=== PATIENT | female | born 1995 | race Caucasian/White ===

== ENCOUNTER 2017-02-07 13:54 | Inpatient (IN) | payer OTHER ==
[~2017-02-07] VITALS: Ht 170.2 cm; Wt 93.4 kg
[2017-02-07] MEDS ORDERED: IV NORMAL SALINE 1000ML BAG 1,000 ML IV SCH ×2 (15:10→17:30)
[2017-02-07] MEDS ORDERED: ONDANSETRON PF 4 MG/2 ML VIAL. IV ONE (15:15)
[2017-02-07] MEDS ORDERED: IOHEXOL 300 MG/ML 75 ML VIAL IV ONE (15:30)
[2017-02-07] MEDS ORDERED: CONTRAST GIVEN MC PRN (15:30)
[2017-02-07] MEDS: MORPHINE SULFATE 4 MG/ML DISP.SYRIN. IV/SQ PRN ×2 (15:35→17:40)
[2017-02-07 15:36] LABS: BASO # 0.1 x10^3/uL (0.0-0.2); BASO % 0 % (0-3); EOS % 1 % (0-3); HEMOGLOBIN 14.5 g/dL (12.0-15.5); LYMPH # 2.3 x10^3/uL (1.0-4.8); LYMPH % 11 % (24-48); MEAN CORPUSCULAR HEMOGLOBIN 31 pg (25-35); MEAN CORPUSCULAR HGB CONC 34 g/dL (31-37); MEAN CORPUSCULAR VOLUME 93 fL (79-100); MONO % 4 % (0-9); NEUT % 84 % (31-73); PLATELET COUNT 333 x10^3/uL (140-400); RED BLOOD COUNT 4.63 x10^6/uL (3.50-5.40); RED CELL DISTRIBUTION WIDTH 12.3 % (11.5-14.5); WHITE BLOOD COUNT 22.2 x10^3/uL (4.0-11.0)
[2017-02-07 15:48] LABS: CALCIUM 9.1 mg/dL (8.5-10.1); CREATININE 0.7 mg/dL (0.6-1.0); GFR 104.6; POTASSIUM 3.6 mmol/L (3.5-5.1)
[2017-02-07 15:53] LABS: ALBUMIN 3.8 g/dL (3.4-5.0); TOTAL BILIRUBIN 0.5 mg/dL (0.2-1.0); TOTAL PROTEIN 7.6 g/dL (6.4-8.2)
[2017-02-07 15:53] LABS: BILIRUBIN,URINE NEGATIVE (NEG); GLUCOSE,URINE NEGATIVE (NEG); NITRITE,URINE NEGATIVE (NEG); PROTEIN,URINE NEGATIVE (NEG-TRACE); UROBILINOGEN,URINE 0.2 mg/dL (0.2 mg/dL)
[2017-02-07 16:25] LABS: BACTERIA,URINE 0 /HPF (0-FEW); RBC,URINE >40 /HPF (0-2); SQUAMOUS EPITHELIAL CELL,UR FEW /LPF; WBC,URINE 0 /HPF (0-4)
--- NOTE | 2017-02-07 16:27 | PHYS DOC ---
Past Medical History Past Medical History: Diabetes-Type I Past Surgical History: Other Additional Past Surgical Histo: ear tubes Smoking: Less than 1pk/day Alcohol Use: Occasionally Drug Use: Cocaine, Marijuana, Methamphetamine Social History Narrative: "I haven't done hard drugs in a couple months. Did marijuana two weeks ago" Adult General Chief Complaint Chief Complaint: ABDOMINAL PAIN HPI HPI Patient is a 21 year old type I diabetic female who presents with right lower quadrant pain starting last night. She's had nausea without vomiting. She reports subjective fever. She denies any diarrhea. She states that she feels like she needs to have a bowel movement but has not had any bowel movement for 2 days. She typically has a daily bowel movement. She denies any urinary symptoms or vaginal discharge. LMP . She last took ibuprofen at 1200. She sees a PCP at [facility]. Review of Systems Review of Systems Constitutional: Reports subjective fever. Eyes: Denies change in visual acuity, redness, or eye pain. [] HENT: Denies ear pain, nasal congestion or sore throat. [] Respiratory: Denies cough or shortness of breath. [] Cardiovascular: Denies chest pain, palpitations or edema. [] GI: Denies vomiting, bloody stools or diarrhea. Reports right lower quadrant abdominal pain and nausea. : Denies dysuria, hematuria or urinary frequency. Denies vaginal discharge. Musculoskeletal: Denies back pain or joint pain. [] Integument: Denies rash or skin lesions. [] Neurologic: Denies headache, focal weakness or sensory changes. [] Endocrine: Denies polyuria or polydipsia. [] Psych: Denies anxiety or depression. [] All systems reviewed and negative unless otherwise stated in the HPI. Current Medications Current Medications Current Medications Medications (Trade) Dose Ordered Sig/Fracisco Start Time Stop Time Status Last Admin Dose Admin Info (Do NOT chart on this entry -- for MONITORING) 1 each PRN DAILY PRN 02/07/17 15:30 02/09/17 15:29 Iohexol (Omnipaque 300 Mg/ml) 75 ml 1X ONCE 02/07/17 15:30 02/07/17 15:31 DC 02/07/17 16:14 75 ML Morphine Sulfate 4 mg 4 mg PRN Q2HR PRN 02/07/17 17:00 02/08/17 16:59 UNV Ondansetron HCl (Zofran) 4 mg PRN Q8HRS PRN 02/07/17 17:00 02/08/17 16:59 UNV Piperacillin Sod/ Tazobactam Sod (Zosyn Per Pharmacy) 1 each PRN DAILY PRN 02/07/17 17:00 UNV Sodium Chloride (Iv Sodium Chloride 0.9% 1000ml Bag) 1,000 ml @ 125 mls/hr Q8H 02/07/17 16:54 02/08/17 16:53 UNV Allergies Allergies Allergies Coded Allergies Type Severity Reaction Last Updated Verified No Known Drug Allergies 02/07/17 No Physical Exam Physical Exam Constitutional: Well developed, well nourished, no acute distress, non-toxic appearance. [] HENT: Normocephalic, atraumatic, oropharynx moist. [] Eyes: PERRLA, EOMI, conjunctiva normal, no discharge. [] Neck: Normal range of motion, no tenderness, supple, no stridor. [] Cardiovascular: Heart rate regular rhythm, no murmur. [] Lungs & Thorax: Bilateral breath sounds clear to auscultation without wheezes, rales, or rhonchi. [] Abdomen: Bowel sounds normal, soft, right lower quadrant tenderness, no masses, no pulsatile masses. The patient's abdomen is soft and nonsurgical with RLQ tenderness. The tenderness is mostly below the pelvic brim without tenderness at McBurney's point. There is no guarding or rebound tenderness. Skin: Warm, dry, no erythema, no rash. [] Back: No midline tenderness, no CVA tenderness. [] Extremities: No tenderness, ROM intact, no edema. Distal pulses equal bilaterally. [] Neurologic: Alert and oriented X 3, normal motor function, normal sensory function, no focal deficits noted. [] Psychologic: Affect normal, judgement normal, mood normal. [] Current Patient Data Vital Signs Vital Signs Date Time Temp Pulse Resp B/P Pulse Ox O2 Delivery O2 Flow Rate FiO2 02/07/17 15:35 18 98 Room Air 02/07/17 14:10 98.6 79 115/58 98.6 Lab Values Laboratory Tests Test 02/07/17 13:52 02/07/17 14:49 02/07/17 15:15 POC Urine HCG, Qualitative Hcg negative (Negative) Urine Collection Type Unknown Urine Color Yellow Urine Clarity Clear Urine pH 8.0 Urine Specific [place] 1.020 Urine Protein Negativemg/dL (NEG-TRACE) Urine Glucose (UA) Negativemg/dL (NEG) Urine Ketones (Stick) Tracemg/dL (NEG) Urine Blood Large (NEG) Urine Nitrite Negative (NEG) Urine Bilirubin Negative (NEG) Urine Urobilinogen Dipstick 0.2mg/dL (0.2 mg/dL) Urine Leukocyte Esterase Negative (NEG) Urine RBC >40/HPF (0-2) Urine WBC 0/HPF (0-4) Urine Squamous Epithelial Cells Few/LPF Urine Bacteria 0/HPF (0-FEW) Urine Mucus Marked/LPF White Blood Count 22.2x10^3/uL (4.0-11.0) H Red Blood Count 4.63x10^6/uL (3.50-5.40) Hemoglobin 14.5g/dL (12.0-15.5) Hematocrit 43.0% (36.0-47.0) Mean Corpuscular Volume 93fL (79-100) Mean Corpuscular Hemoglobin 31pg (25-35) Mean Corpuscular Hemoglobin Concent 34g/dL (31-37) Red Cell Distribution Width 12.3% (11.5-14.5) Platelet Count 333x10^3/uL (140-400) Neutrophils (%) (Auto) 84% (31-73) H Lymphocytes (%) (Auto) 11% (24-48) L Monocytes (%) (Auto) 4% (0-9) Eosinophils (%) (Auto) 1% (0-3) Basophils (%) (Auto) 0% (0-3) Neutrophils # (Auto) 18.7x10^3uL (1.8-7.7) H Lymphocytes # (Auto) 2.3x10^3/uL (1.0-4.8) Monocytes # (Auto) 1.0x10^3/uL (0.0-1.1) Eosinophils # (Auto) 0.1x10^3/uL (0.0-0.7) Basophils # (Auto) 0.1x10^3/uL (0.0-0.2) Segmented Neutrophils % 78% (35-66) H Band Neutrophils % 7% (0-9) Lymphocytes % 10% (24-48) L Atypical Lymphocytes % (Manual) 1% (0-0) H Monocytes % 2% (0-10) Eosinophils % 2% (0-5) Platelet Estimate Adequate (ADEQUATE) Sodium Level 140mmol/L (136-145) Potassium Level 3.6mmol/L (3.5-5.1) Chloride Level 105mmol/L (98-107) Carbon Dioxide Level 26mmol/L (21-32) Anion Gap 9 (6-14) Blood Urea Nitrogen 12mg/dL (7-20) Creatinine 0.7mg/dL (0.6-1.0) Estimated GFR (Cockcroft-Gault) 104.6 BUN/Creatinine Ratio 17 (6-20) Glucose Level 103mg/dL (70-99) H Calcium Level 9.1mg/dL (8.5-10.1) Total Bilirubin 0.5mg/dL (0.2-1.0) Aspartate Amino Transferase (AST) 14U/L (15-37) L Alanine Aminotransferase (ALT) 22U/L (14-59) Alkaline Phosphatase 111U/L (46-116) Total Protein 7.6g/dL (6.4-8.2) Albumin 3.8g/dL (3.4-5.0) Albumin/Globulin Ratio 1.0 (1.0-1.7) Lipase 62U/L (73-393) L Laboratory Tests 02/07/17 15:15 Laboratory Tests 02/07/17 15:15 EKG EKG [] Radiology/Procedures Radiology/Procedures REASON: rlq pain PROCEDURE: ABD PELV W/ IV CONTRAST ONLY CT of the abdomen and pelvis with contrast, 02/07/2017: History: Right lower quadrant pain Multidetector CT imaging was performed following an IV bolus injection of iodinated contrast material. No oral contrast material was administered for this study. The liver, gallbladder, pancreas, spleen and both kidneys are unremarkable. The cecum is low-lying in the right lower quadrant. There is a tubular structure extending superiorly from the cecum most compatible with a dilated appendix. It contains small radiopacities compatible with appendicoliths. Its saavedra are thickened. It measures approximately 13 mm in diameter. There is moderate streaky increased density in the periappendiceal fat. There is a small amount of free fluid in the deep pelvis. This inflammatory process lies adjacent to the right ovary. The right ovary contains a 3.1 cm cyst. The bowel loops are not dilated. No free air is evident in the abdomen or pelvis. IMPRESSION: 1. Acute appendicitis with moderate periappendiceal inflammation and a small amount of free fluid in the deep pelvis suggesting associated perforation. 2. Small right ovarian cyst. Course & Med Decision Making Course & Med Decision Making Pertinent Labs and Imaging studies reviewed. (See chart for details) The patient is a 21-year-old type I diabetic female who presents with right lower quadrant pain starting last night. Upon arrival to the emergency department, she is afebrile and her vital signs are stable. On exam, her abdomen is soft with right lower quadrant tenderness. There is no rigidity, rebound, or guarding. Laboratory evaluation is significant for leukocytosis with WBC 22,000. CT of the abdomen and pelvis is positive for appendicitis with small amount of free pelvic fluid suggesting possible perforation. I reexamined the patient at 1645. Her abdomen remains soft with right lower quadrant tenderness. There is still no rigidity, rebound, or guarding. I discussed the results with the patient and the need for hospital admission for surgery for acute appendicitis. She is in agreement with this plan. Dr. Girard, general surgeon, was consultation. He requests to have the patient admitted under the hospitalist service due to her diabetes. IV Zosyn was initiated in the emergency department under his request. Dr. Lao with the hospitalist group accepted admission. The patient remained stable while in the emergency department. Dragon Disclaimer Dragon Disclaimer This electronic medical record was generated, in whole or in part, using a voice recognition dictation system. Departure Departure Impression: Primary Impression: Appendicitis with perforation Disposition: ADMITTED INPATIENT Admitting Physician: Other (Dr. Lao) Condition: STABLE Referrals: NO PCP (PCP) HOLLEY CORRALES Feb 07, 2017 16:27
--- NOTE | 2017-02-07 16:35 | RAD ---
CT of the abdomen and pelvis with contrast, 02/07/2017: History: Right lower quadrant pain Multidetector CT imaging was performed following an IV bolus injection of iodinated contrast material. No oral contrast material was administered for this study. The liver, gallbladder, pancreas, spleen and both kidneys are unremarkable. The cecum is low-lying in the right lower quadrant. There is a tubular structure extending superiorly from the cecum most compatible with a dilated appendix. It contains small radiopacities compatible with appendicoliths. Its saavedra are thickened. It measures approximately 13 mm in diameter. There is moderate streaky increased density in the periappendiceal fat. There is a small amount of free fluid in the deep pelvis. This inflammatory process lies adjacent to the right ovary. The right ovary contains a 3.1 cm cyst. The bowel loops are not dilated. No free air is evident in the abdomen or pelvis. IMPRESSION: 1. Acute appendicitis with moderate periappendiceal inflammation and a small amount of free fluid in the deep pelvis suggesting associated perforation. 2. Small right ovarian cyst. PQRS Compliance Statement: One or more of the following individualized dose reduction techniques were utilized for this examination: 1. Automated exposure control 2. Adjustment of the mA and/or kV according to patient size 3. Use of iterative reconstruction technique
[2017-02-07 16:54] LABS: % EOS 2 % (0-5); PLT ESTIMATE ADEQUATE (ADEQUATE)
[2017-02-07] MEDS ORDERED: MORPHINE SULFATE 4 MG/ML DISP.SYRIN. IV PRN (17:00)
[2017-02-07] MEDS ORDERED: PIP/TAZO PER PHARMACY MC PRN (17:00)
[2017-02-07] MEDS ORDERED: ONDANSETRON PF 4 MG/2 ML VIAL. IV PRN ×2 (17:00→19:00)
[2017-02-07] MEDS ORDERED: PIPERACILLIN/TAZOBACTAM 3.375 GM in IV NORMAL SALINE 50ML 50 ML IV ONE (17:15)
--- NOTE | 2017-02-07 17:47 | ACF ---
Admission Forms Criteria ABDOMINAL PAIN Clinical Indications for Admission to Inpatient Care (Place 'X' for any and all applicable criteria): Admission is indicated for ANY ONE of the following(1)(2)(3)(4)(5): [X]I. Inpatient admission required rather than observation care (Also use Abdominal Pain: Observation Care, as appropriate) because of ANY ONE of the following: [X]a) Severe pain requiring acute inpatient management [X]b) Identification of etiology/finding that requires inpatient care (eg, aortic dissection, free air) [ ]c) Absent bowel sounds with complete ileus(6) [ ]d) Suspected toxic megacolon [ ]e) Severe electrolyte abnormalities requiring inpatient care [ ]f) High fever or infection requiring inpatient admission as indicated by ANY ONE of following(7)(8): [ ] i) Appropriate outpatient or observational care antimicrobial treatment unavailable, not effective, or not feasible [ ] ii) Documented bacteremia [ ] iii) Temperature > 104.9 degrees F (oral) [ ] iv) T >103.1 F (oral) or < 96.8 F(rectal) that does not respond to all emergency treatment measures [ ]g) Signs of intestinal obstruction [B] [ ]h) Hemodynamic instability [ ]i) IV fluid to replace significant ongoing losses (greater than 3 L/m2 per day) (12)(13) [ ]j) Percutaneous or open drainage (eg, abscess, biliary tract ) procedures [ ]k) Parenteral nutrition regimen that must be implemented on inpatient basis [ ]l) Other condition,treatment or monitoring requiring inpatient admission. [ ]II. Peritoneal signs present [ ]III. Surgery needed that cannot be performed on an ambulatory basis. [ ]IV. Evaluation requires patient to not eat or drink for extended period ( eg, more than 24 hours). [ ]V. Contraindications and/or Inappropriate clinical situations for Observational Care in patients with abdominal pain, when ANY ONE of the following is required: [ ]a) Thorough evaluation is required to prevent catastrophic events due to delays in diagnosing (e.g.Mesenteric ischemia) 1,3 [ ]b) Patient with severe pathology or with chronic symptoms unlikely to improve in the ED stay (3) [ ]. General contraindications and/or Inappropriate clinical situations for Observational Care in patients with abdominal pain, when ANY ONE of the following is required: [ ]a) Prediction of prolongation of LOS based on ANY ONE of the following may be considered as a contraindication for observational care 2, 3, 4, 5, 6, 7, 8, 9, 10, 11 [ ]i) Age > 65 yrs. [ ]ii) Patient arriving by ambulance [ ]iii) Patient with high acuity [ ]iv) Patient requiring vital sign monitoring [ ]v) Patient on IV medication [ ]b) Systolic blood pressures 180mmHg 3,12 [ ]c) Patient with altered mental status including delirium and other alteration of consciousness, (3) [ ]d) Patient whose discharge disposition will be to a shelter home or rehabilitation home should not be managed in Emergency Department Observation Unit. CMS rule requires 3 days hospital stay before such placement.3,13 [ ]e) Patient with failure to thrive due to broad array of etiologies 3,16,17 [ ]f) Inability to ambulate 3,14 Extended stay beyond goal length of stay may be needed for(2)(3): [ ]a) Persistent abdominal pain with suspected intra-abdominal process [ ]b) Diagnosed condition requiring continued stay (e.g., pancreatitis, complicated diverticulitis) [ ]c) Surgery (e.g., colectomy) The original [facility] content created by [employer] has been revised. The portions of the content which have been revised are identified through the use of italic text or in bold, and [facility] has neither reviewed nor approved the modified material.All other unmodified content is copyright [employer]. Please see references footnoted in the original [facility] edition 2016 Admission Criteria Met?: Yes MIKA OJEDA Feb 07, 2017 17:46
--- NOTE | 2017-02-07 17:52 | PDOC2 ---
CONSULT Date of Consult Date of Consult DATE: 02/07/17 TIME: 17:43 Reason for Consult Reason for Consult: acute appendicitis Referring Physician Referring Physician: CALI Identification/Chief Complaint Chief Complaint RLQ pain Source Source: Patient History of Present Illness Reason for Visit: Nena is a 21 yo female who had acute onset of some right sided pain yesterday. She was just coming off her period and thought it might be cramps, however, the pain got worse and she came to the ED. CT here shows an acute appendicitis. Past Medical History Cardiovascular: No pertinent hx Pulmonary: No pertinent hx GI: No pertinent hx Hepatobiliary: No pertinent hx Renal/: No pertinent hx Endocrine: Diabetes, Other (since age [age]) Past Surgical History Past Surgical History: No pertinent history Family History Family History: No Significant Social History <1 pack per day ALCOHOL: occassional Current Problem List Problem List Problems Medical Problems: (1) Appendicitis with perforation Status: Acute Current Medications Current Medications Current Medications Morphine Sulfate 4 mg 4 mg PRN Q15MIN PRN IV/SQ PAIN GREATER THAN 3/10 Last administered on 02/07/17 15:35; Start 02/07/17 at 15:15; Stop 02/08/17 at 15:14 Sodium Chloride (Iv Sodium Chloride 0.9% 1000ml Bag) 1,000 ml @ 1,000 mls/hr Q1H IV Last administered on 02/07/17 15:31; Start 02/07/17 at 15:10; Stop at 16:09; Status DC Ondansetron HCl (Zofran) 4 mg 1X ONCE IV Last administered on 02/07/17 15:33 ; Start 02/07/17 at 15:15; Stop 02/07/17 at 15:16; Status DC Iohexol (Omnipaque 300 Mg/ml) 75 ml 1X ONCE IV Last administered on 02/07/17 16:14; Start 02/07/17 at 15:30; Stop 02/07/17 at 15:31; Status DC Info (Do NOT chart on this entry -- for MONITORING) 1 each PRN DAILY PRN MC SEE COMMENTS; Start 02/07/17 at 15:30; Stop 02/09/17 at 15:29 Ondansetron HCl (Zofran) 4 mg PRN Q8HRS PRN IV NAUSEA/VOMITING; Start 02/07/17 at 17:00; Stop 02/08/17 at 16:59 Morphine Sulfate 4 mg 4 mg PRN Q2HR PRN IV PAIN; Start 02/07/17 at 17:00; Stop 02/08/17 at 16:59 Sodium Chloride (Iv Sodium Chloride 0.9% 1000ml Bag) 1,000 ml @ 125 mls/hr Q8H IV ; Start 02/07/17 at 17:30; Stop 02/08/17 at 17:29 Piperacillin Sod/ Tazobactam Sod 1 each 1 each PRN DAILY PRN MC SEE COMMENTS; Start 02/07/17 at 17:00; Status UNV Piperacillin Sod/ Tazobactam Sod/ Sodium Chloride (Zosyn/Iv Sodium Chloride 0.9 % 50ml) 50 ml @ 100 mls/hr 1X ONCE IV ; Start 02/07/17 at 17:15; Stop at 17:44 Allergies Allergies: Coded Allergies: No Known Drug Allergies (Unverified , 02/07/17) ROS General: YES: Fatigue Gastrointestinal: Yes Abdominal Pain Physical Exam General: Alert, Oriented X3, Cooperative, No acute distress HEENT: Atraumatic Lungs: Normal air movement Heart: Regular rate Abdomen: Other (TTP RLQ) Vitals VITALS Vital Signs Date Time Temp Pulse Resp B/P Pulse Ox O2 Delivery O2 Flow Rate FiO2 02/07/17 15:35 18 98 Room Air 02/07/17 14:10 98.6 79 115/58 98.6 Labs Labs Laboratory Tests Test 02/07/17 13:52 02/07/17 14:49 02/07/17 15:15 Bedside Urine HCG, Qualitative Hcg negative (Negative) Urine Collection Type Unknown Urine Color Yellow Urine Clarity Clear Urine pH 8.0 Urine Specific [place] 1.020 Urine Protein Negativemg/dL (NEG-TRACE) Urine Glucose (UA) Negativemg/dL (NEG) Urine Ketones (Stick) Tracemg/dL (NEG) Urine Blood Large (NEG) Urine Nitrite Negative (NEG) Urine Bilirubin Negative (NEG) Urine Urobilinogen Dipstick 0.2mg/dL (0.2 mg/dL) Urine Leukocyte Esterase Negative (NEG) Urine RBC >40/HPF (0-2) Urine WBC 0/HPF (0-4) Urine Squamous Epithelial Cells Few/LPF Urine Bacteria 0/HPF (0-FEW) Urine Mucus Marked/LPF White Blood Count 22.2x10^3/uL (4.0-11.0) Red Blood Count 4.63x10^6/uL (3.50-5.40) Hemoglobin 14.5g/dL (12.0-15.5) Hematocrit 43.0% (36.0-47.0) Mean Corpuscular Volume 93fL (79-100) Mean Corpuscular Hemoglobin 31pg (25-35) Mean Corpuscular Hemoglobin Concent 34g/dL (31-37) Red Cell Distribution Width 12.3% (11.5-14.5) Platelet Count 333x10^3/uL (140-400) Neutrophils (%) (Auto) 84% (31-73) Lymphocytes (%) (Auto) 11% (24-48) Monocytes (%) (Auto) 4% (0-9) Eosinophils (%) (Auto) 1% (0-3) Basophils (%) (Auto) 0% (0-3) Neutrophils # (Auto) 18.7x10^3uL (1.8-7.7) Lymphocytes # (Auto) 2.3x10^3/uL (1.0-4.8) Monocytes # (Auto) 1.0x10^3/uL (0.0-1.1) Eosinophils # (Auto) 0.1x10^3/uL (0.0-0.7) Basophils # (Auto) 0.1x10^3/uL (0.0-0.2) Segmented Neutrophils % 78% (35-66) Band Neutrophils % 7% (0-9) Lymphocytes % 10% (24-48) Atypical Lymphocytes % (Manual) 1% (0-0) Monocytes % 2% (0-10) Eosinophils % 2% (0-5) Platelet Estimate Adequate (ADEQUATE) Sodium Level 140mmol/L (136-145) Potassium Level 3.6mmol/L (3.5-5.1) Chloride Level 105mmol/L (98-107) Carbon Dioxide Level 26mmol/L (21-32) Anion Gap 9 (6-14) Blood Urea Nitrogen 12mg/dL (7-20) Creatinine 0.7mg/dL (0.6-1.0) Estimated GFR (Cockcroft-Gault) 104.6 BUN/Creatinine Ratio 17 (6-20) Glucose Level 103mg/dL (70-99) Calcium Level 9.1mg/dL (8.5-10.1) Total Bilirubin 0.5mg/dL (0.2-1.0) Aspartate Amino Transf (AST/SGOT) 14U/L (15-37) Alanine Aminotransferase (ALT/SGPT) 22U/L (14-59) Alkaline Phosphatase 111U/L (46-116) Total Protein 7.6g/dL (6.4-8.2) Albumin 3.8g/dL (3.4-5.0) Albumin/Globulin Ratio 1.0 (1.0-1.7) Lipase 62U/L (73-393) Laboratory Tests Test 02/07/17 13:52 02/07/17 14:49 02/07/17 15:15 Bedside Urine HCG, Qualitative Hcg negative (Negative) Urine Collection Type Unknown Urine Color Yellow Urine Clarity Clear Urine pH 8.0 Urine Specific [place] 1.020 Urine Protein Negativemg/dL (NEG-TRACE) Urine Glucose (UA) Negativemg/dL (NEG) Urine Ketones (Stick) Tracemg/dL (NEG) Urine Blood Large (NEG) Urine Nitrite Negative (NEG) Urine Bilirubin Negative (NEG) Urine Urobilinogen Dipstick 0.2mg/dL (0.2 mg/dL) Urine Leukocyte Esterase Negative (NEG) Urine RBC >40/HPF (0-2) Urine WBC 0/HPF (0-4) Urine Squamous Epithelial Cells Few/LPF Urine Bacteria 0/HPF (0-FEW) Urine Mucus Marked/LPF White Blood Count 22.2x10^3/uL (4.0-11.0) Red Blood Count 4.63x10^6/uL (3.50-5.40) Hemoglobin 14.5g/dL (12.0-15.5) Hematocrit 43.0% (36.0-47.0) Mean Corpuscular Volume 93fL (79-100) Mean Corpuscular Hemoglobin 31pg (25-35) Mean Corpuscular Hemoglobin Concent 34g/dL (31-37) Red Cell Distribution Width 12.3% (11.5-14.5) Platelet Count 333x10^3/uL (140-400) Neutrophils (%) (Auto) 84% (31-73) Lymphocytes (%) (Auto) 11% (24-48) Monocytes (%) (Auto) 4% (0-9) Eosinophils (%) (Auto) 1% (0-3) Basophils (%) (Auto) 0% (0-3) Neutrophils # (Auto) 18.7x10^3uL (1.8-7.7) Lymphocytes # (Auto) 2.3x10^3/uL (1.0-4.8) Monocytes # (Auto) 1.0x10^3/uL (0.0-1.1) Eosinophils # (Auto) 0.1x10^3/uL (0.0-0.7) Basophils # (Auto) 0.1x10^3/uL (0.0-0.2) Segmented Neutrophils % 78% (35-66) Band Neutrophils % 7% (0-9) Lymphocytes % 10% (24-48) Atypical Lymphocytes % (Manual) 1% (0-0) Monocytes % 2% (0-10) Eosinophils % 2% (0-5) Platelet Estimate Adequate (ADEQUATE) Sodium Level 140mmol/L (136-145) Potassium Level 3.6mmol/L (3.5-5.1) Chloride Level 105mmol/L (98-107) Carbon Dioxide Level 26mmol/L (21-32) Anion Gap 9 (6-14) Blood Urea Nitrogen 12mg/dL (7-20) Creatinine 0.7mg/dL (0.6-1.0) Estimated GFR (Cockcroft-Gault) 104.6 BUN/Creatinine Ratio 17 (6-20) Glucose Level 103mg/dL (70-99) Calcium Level 9.1mg/dL (8.5-10.1) Total Bilirubin 0.5mg/dL (0.2-1.0) Aspartate Amino Transf (AST/SGOT) 14U/L (15-37) Alanine Aminotransferase (ALT/SGPT) 22U/L (14-59) Alkaline Phosphatase 111U/L (46-116) Total Protein 7.6g/dL (6.4-8.2) Albumin 3.8g/dL (3.4-5.0) Albumin/Globulin Ratio 1.0 (1.0-1.7) Lipase 62U/L (73-393) Images Images CT abdomen reviewed Assessment/Plan Assessment/Plan acute appendicitis with possible perforation IDDM for l/s appendectomy Explained risks including but not limited to bleeding, infection, injury to bowel, bladder or pelvic organs. Or possible need for an "open" procedure. She understands and will proceed Thanks for consult JADEN CHOWDHURY MD Feb 07, 2017 17:52
[2017-02-07] MEDS ORDERED: METRONIDAZOLE 500mg PREMIX 100 ML IV PRN (18:00)
[2017-02-07] MEDS ORDERED: DEXTROSE 50% 25 GM / 50ML DISP.SYRIN. IV PRN ×2 (18:30→21:45)
[2017-02-07] MEDS ORDERED: IV RINGERS,LACTATED 1000ML 1,000 ML IV SCH (18:55)
[2017-02-07] MEDS ORDERED: PROCHLORPERAZINE 10 MG/2 ML VIAL. IV PRN (19:00)
[2017-02-07] MEDS ORDERED: HYDROMORPHONE 2 MG/ML VIAL. IV PRN (19:00)
[2017-02-07] MEDS ORDERED: FENTANYL PF 100 MCG/2 ML VIAL. IV PRN (19:00)
[2017-02-07] MEDS ORDERED: LIDOCAINE 1% 1 ML SYRINGE. ID PRN (19:00)
[2017-02-07] MEDS ORDERED: MORPHINE SULFATE 2 MG/ML DISP.SYRIN. IV PRN (19:00)
[2017-02-07] MEDS ORDERED: FENTANYL PF 100 MCG/2 ML VIAL. ONE (19:15)
[2017-02-07] MEDS ORDERED: GLYCOPYRROLATE 1 MG/5 ML VIAL. ONE (19:15)
[2017-02-07] MEDS ORDERED: PROPOFOL 20 ML IV ONE (19:15)
[2017-02-07] MEDS ORDERED: LIDOCAINE 2% 100 MG/5 ML DISP.SYRIN. ONE (19:15)
[2017-02-07] MEDS ORDERED: NEOSTIGMINE METHYLSULFATE 5 MG/5 ML SYRINGE. ONE ×3 (19:15→19:23)
[2017-02-07] MEDS ORDERED: DEXAMETHASONE SOD PHOS 20 MG/5 ML VIAL. ONE (19:15)
[2017-02-07] MEDS ORDERED: SUCCINYLCHOLINE 200 MG/10 ML VIAL. ONE (19:15)
[2017-02-07] MEDS ORDERED: ONDANSETRON PF 4 MG/2 ML VIAL. ONE (19:15)
[2017-02-07] MEDS ORDERED: ROCURONIUM 50 MG/5 ML VIAL. ONE (19:16)
[2017-02-07] MEDS ORDERED: SEVOFLURANE 31 TO 60 MINUTES. IH ONE (19:20)
[2017-02-07] MEDS: FENTANYL PF 100 MCG/2 ML VIAL. IV PRN ×4 (19:46→22:16)
[2017-02-07] MEDS: IV DEXTROSE 5%-LACT RINGERS 1,000 ML IV SCH (19:49)
[2017-02-07] MEDS ORDERED: MORPHINE SULFATE 10 MG/ML VIAL. ONE (20:36)
[2017-02-07] MEDS ORDERED: PHENYLEPHRINE in 0.9% NACL PF 1 MG/10 ML DISP.SYRIN. IV ONE (20:36)
[2017-02-07] MEDS ORDERED: SEVOFLURANE 61 TO 120 MINUTES. IH ONE (21:22)
--- NOTE | 2017-02-07 21:38 | PDOC ---
BRIEF OPERATIVE NOTE Date: Feb 07, 2017 Pre-Op Diagnosis acute appendicitis Post-Op Diagnosis same Procedure Performed l/s appendectomy Surgeon Shaji Anesthesia Type: General Blood Loss 25cc IV Fluid 800cc Urine Output 300cc Specimens Obtained appendix Findings acute appendicitis without obvious perforation, right ovarian cyst Complications none JADEN CHOWDHURY MD Feb 07, 2017 21:38
[2017-02-07] MEDS ORDERED: 0.9 % SODIUM CHLORIDE 10 ML DISP.SYRIN. IV PRN (21:45)
[2017-02-07] MEDS ORDERED: OXYCODONE/APAP 5/325 TABLET. PO PRN (21:45)
[2017-02-07 23:35] VITALS: BP 112/63
[2017-02-07 23:45] VITALS: BP 114/51
[2017-02-07 23:50] VITALS: BP 105/58
[2017-02-07] MEDS: OXYCODONE/APAP 5/325 TABLET. PO PRN (23:58)
[2017-02-08] VITALS (9 sets, daily range): BP systolic 100–137; BP diastolic 48–80
[2017-02-08] MEDS: HYDROMORPHONE 2 MG/ML VIAL. IV PRN ×3 (02:12→10:14)
[2017-02-08] MEDS: OXYCODONE/APAP 5/325 TABLET. PO PRN ×2 (04:11→08:17)
[2017-02-08 07:40] LABS: BASO % 0 % (0-3); EOS % 0 % (0-3); HEMATOCRIT 39.5 % (36.0-47.0); HEMOGLOBIN 13.2 g/dL (12.0-15.5); LYMPH # 1.2 x10^3/uL (1.0-4.8); LYMPH % 6 % (24-48); MEAN CORPUSCULAR HEMOGLOBIN 31 pg (25-35); MEAN CORPUSCULAR HGB CONC 33 g/dL (31-37); MEAN CORPUSCULAR VOLUME 94 fL (79-100); MONO % 4 % (0-9); NEUT % 90 % (31-73); PLATELET COUNT 324 x10^3/uL (140-400); RED BLOOD COUNT 4.21 x10^6/uL (3.50-5.40); RED CELL DISTRIBUTION WIDTH 12.2 % (11.5-14.5); WHITE BLOOD COUNT 22.6 x10^3/uL (4.0-11.0)
[2017-02-08] MEDS: DOCUSATE SODIUM 100 MG CAPSULE PO SCH ×2 (08:17→21:08)
[2017-02-08] MEDS: NICOTINE 21MG PATCH. TD SCH (08:17)
[2017-02-08] MEDS: ENOXAPARIN 40 MG/0.4 ML DISP.SYRIN. SQ SCH (08:18)
[2017-02-08] MEDS ORDERED: DEXTROSE 50% 25 GM / 50ML DISP.SYRIN. IV PRN (09:30)
[2017-02-08] MEDS: POLYETHYLENE GLYCOL 3350 17 GM PACKET. PO SCH ×2 (10:01→18:00)
[2017-02-08] MEDS: ONDANSETRON PF 4 MG/2 ML VIAL. IV PRN ×2 (10:15→17:18)
[2017-02-08] MEDS: POTASSIUM CL 20MEQ-0.45% NACL 1,000 ML IV SCH ×4 (10:16→21:11)
[2017-02-08] MEDS ORDERED: OXYCODONE/APAP 5/325 TABLET. PO PRN ×2 (11:00)
--- NOTE | 2017-02-08 11:48 | PDOC ---
SURGICAL PROGRESS NOTE Subjective had issues with IV earlier preventing her from getting her pain meds. better now Vital Signs Vital Signs Date Time Temp Pulse Resp B/P Pulse Ox O2 Delivery O2 Flow Rate FiO2 02/08/17 07:00 97.6 86 18 137/56 95 Room Air 97.6 02/08/17 05:11 10.0 I&O Intake and Output 02/08/17 07:00 Intake Total 2950 ml Output Total 325 ml Balance 2625 ml Intake Oral 600 ml IV Total 2350 ml Output Urine Total 300 ml Estimated Blood Loss 25 ml PATIENT HAS A SALDAÑA: No General: Alert, Oriented X3, No acute distress Abdomen: Soft Labs Laboratory Tests Test 02/07/17 13:52 02/07/17 14:49 02/07/17 15:15 02/07/17 17:20 Bedside Urine HCG, Qualitative Hcg negative (Negative) Urine Collection Type Unknown Urine Color Yellow Urine Clarity Clear Urine pH 8.0 Urine Specific [place] 1.020 Urine Protein Negativemg/dL (NEG-TRACE) Urine Glucose (UA) Negativemg/dL (NEG) Urine Ketones (Stick) Tracemg/dL (NEG) Urine Blood Large (NEG) Urine Nitrite Negative (NEG) Urine Bilirubin Negative (NEG) Urine Urobilinogen Dipstick 0.2mg/dL (0.2 mg/dL) Urine Leukocyte Esterase Negative (NEG) Urine RBC >40/HPF (0-2) Urine WBC 0/HPF (0-4) Urine Squamous Epithelial Cells Few/LPF Urine Bacteria 0/HPF (0-FEW) Urine Mucus Marked/LPF White Blood Count 22.2x10^3/uL (4.0-11.0) Red Blood Count 4.63x10^6/uL (3.50-5.40) Hemoglobin 14.5g/dL (12.0-15.5) Hematocrit 43.0% (36.0-47.0) Mean Corpuscular Volume 93fL (79-100) Mean Corpuscular Hemoglobin 31pg (25-35) Mean Corpuscular Hemoglobin Concent 34g/dL (31-37) Red Cell Distribution Width 12.3% (11.5-14.5) Platelet Count 333x10^3/uL (140-400) Neutrophils (%) (Auto) 84% (31-73) Lymphocytes (%) (Auto) 11% (24-48) Monocytes (%) (Auto) 4% (0-9) Eosinophils (%) (Auto) 1% (0-3) Basophils (%) (Auto) 0% (0-3) Neutrophils # (Auto) 18.7x10^3uL (1.8-7.7) Lymphocytes # (Auto) 2.3x10^3/uL (1.0-4.8) Monocytes # (Auto) 1.0x10^3/uL (0.0-1.1) Eosinophils # (Auto) 0.1x10^3/uL (0.0-0.7) Basophils # (Auto) 0.1x10^3/uL (0.0-0.2) Segmented Neutrophils % 78% (35-66) Band Neutrophils % 7% (0-9) Lymphocytes % 10% (24-48) Atypical Lymphocytes % (Manual) 1% (0-0) Monocytes % 2% (0-10) Eosinophils % 2% (0-5) Platelet Estimate Adequate (ADEQUATE) Sodium Level 140mmol/L (136-145) Potassium Level 3.6mmol/L (3.5-5.1) Chloride Level 105mmol/L (98-107) Carbon Dioxide Level 26mmol/L (21-32) Anion Gap 9 (6-14) Blood Urea Nitrogen 12mg/dL (7-20) Creatinine 0.7mg/dL (0.6-1.0) Estimated GFR (Cockcroft-Gault) 104.6 BUN/Creatinine Ratio 17 (6-20) Glucose Level 103mg/dL (70-99) Calcium Level 9.1mg/dL (8.5-10.1) Total Bilirubin 0.5mg/dL (0.2-1.0) Aspartate Amino Transf (AST/SGOT) 14U/L (15-37) Alanine Aminotransferase (ALT/SGPT) 22U/L (14-59) Alkaline Phosphatase 111U/L (46-116) Total Protein 7.6g/dL (6.4-8.2) Albumin 3.8g/dL (3.4-5.0) Albumin/Globulin Ratio 1.0 (1.0-1.7) Lipase 62U/L (73-393) Lactic Acid Level 0.7mmol/L (0.4-2.0) Test 02/07/17 18:24 02/07/17 18:56 02/07/17 21:40 02/08/17 02:10 Glucose (Fingerstick) 50mg/dL (70-99) 121mg/dL (70-99) 109mg/dL (70-99) 100mg/dL (70-99) Test 02/08/17 06:34 02/08/17 08:13 White Blood Count 22.6x10^3/uL (4.0-11.0) Red Blood Count 4.21x10^6/uL (3.50-5.40) Hemoglobin 13.2g/dL (12.0-15.5) Hematocrit 39.5% (36.0-47.0) Mean Corpuscular Volume 94fL (79-100) Mean Corpuscular Hemoglobin 31pg (25-35) Mean Corpuscular Hemoglobin Concent 33g/dL (31-37) Red Cell Distribution Width 12.2% (11.5-14.5) Platelet Count 324x10^3/uL (140-400) Neutrophils (%) (Auto) 90% (31-73) Lymphocytes (%) (Auto) 6% (24-48) Monocytes (%) (Auto) 4% (0-9) Eosinophils (%) (Auto) 0% (0-3) Basophils (%) (Auto) 0% (0-3) Neutrophils # (Auto) 20.3x10^3uL (1.8-7.7) Lymphocytes # (Auto) 1.2x10^3/uL (1.0-4.8) Monocytes # (Auto) 1.0x10^3/uL (0.0-1.1) Eosinophils # (Auto) 0.0x10^3/uL (0.0-0.7) Basophils # (Auto) 0.0x10^3/uL (0.0-0.2) Glucose (Fingerstick) 176mg/dL (70-99) Laboratory Tests Test 02/07/17 13:52 02/07/17 14:49 02/07/17 15:15 02/07/17 17:20 Bedside Urine HCG, Qualitative Hcg negative (Negative) Urine Collection Type Unknown Urine Color Yellow Urine Clarity Clear Urine pH 8.0 Urine Specific [place] 1.020 Urine Protein Negativemg/dL (NEG-TRACE) Urine Glucose (UA) Negativemg/dL (NEG) Urine Ketones (Stick) Tracemg/dL (NEG) Urine Blood Large (NEG) Urine Nitrite Negative (NEG) Urine Bilirubin Negative (NEG) Urine Urobilinogen Dipstick 0.2mg/dL (0.2 mg/dL) Urine Leukocyte Esterase Negative (NEG) Urine RBC >40/HPF (0-2) Urine WBC 0/HPF (0-4) Urine Squamous Epithelial Cells Few/LPF Urine Bacteria 0/HPF (0-FEW) Urine Mucus Marked/LPF White Blood Count 22.2x10^3/uL (4.0-11.0) Red Blood Count 4.63x10^6/uL (3.50-5.40) Hemoglobin 14.5g/dL (12.0-15.5) Hematocrit 43.0% (36.0-47.0) Mean Corpuscular Volume 93fL (79-100) Mean Corpuscular Hemoglobin 31pg (25-35) Mean Corpuscular Hemoglobin Concent 34g/dL (31-37) Red Cell Distribution Width 12.3% (11.5-14.5) Platelet Count 333x10^3/uL (140-400) Neutrophils (%) (Auto) 84% (31-73) Lymphocytes (%) (Auto) 11% (24-48) Monocytes (%) (Auto) 4% (0-9) Eosinophils (%) (Auto) 1% (0-3) Basophils (%) (Auto) 0% (0-3) Neutrophils # (Auto) 18.7x10^3uL (1.8-7.7) Lymphocytes # (Auto) 2.3x10^3/uL (1.0-4.8) Monocytes # (Auto) 1.0x10^3/uL (0.0-1.1) Eosinophils # (Auto) 0.1x10^3/uL (0.0-0.7) Basophils # (Auto) 0.1x10^3/uL (0.0-0.2) Segmented Neutrophils % 78% (35-66) Band Neutrophils % 7% (0-9) Lymphocytes % 10% (24-48) Atypical Lymphocytes % (Manual) 1% (0-0) Monocytes % 2% (0-10) Eosinophils % 2% (0-5) Platelet Estimate Adequate (ADEQUATE) Sodium Level 140mmol/L (136-145) Potassium Level 3.6mmol/L (3.5-5.1) Chloride Level 105mmol/L (98-107) Carbon Dioxide Level 26mmol/L (21-32) Anion Gap 9 (6-14) Blood Urea Nitrogen 12mg/dL (7-20) Creatinine 0.7mg/dL (0.6-1.0) Estimated GFR (Cockcroft-Gault) 104.6 BUN/Creatinine Ratio 17 (6-20) Glucose Level 103mg/dL (70-99) Calcium Level 9.1mg/dL (8.5-10.1) Total Bilirubin 0.5mg/dL (0.2-1.0) Aspartate Amino Transf (AST/SGOT) 14U/L (15-37) Alanine Aminotransferase (ALT/SGPT) 22U/L (14-59) Alkaline Phosphatase 111U/L (46-116) Total Protein 7.6g/dL (6.4-8.2) Albumin 3.8g/dL (3.4-5.0) Albumin/Globulin Ratio 1.0 (1.0-1.7) Lipase 62U/L (73-393) Lactic Acid Level 0.7mmol/L (0.4-2.0) Test 02/07/17 18:24 02/07/17 18:56 02/07/17 21:40 02/08/17 02:10 Glucose (Fingerstick) 50mg/dL (70-99) 121mg/dL (70-99) 109mg/dL (70-99) 100mg/dL (70-99) Test 02/08/17 06:34 02/08/17 08:13 White Blood Count 22.6x10^3/uL (4.0-11.0) Red Blood Count 4.21x10^6/uL (3.50-5.40) Hemoglobin 13.2g/dL (12.0-15.5) Hematocrit 39.5% (36.0-47.0) Mean Corpuscular Volume 94fL (79-100) Mean Corpuscular Hemoglobin 31pg (25-35) Mean Corpuscular Hemoglobin Concent 33g/dL (31-37) Red Cell Distribution Width 12.2% (11.5-14.5) Platelet Count 324x10^3/uL (140-400) Neutrophils (%) (Auto) 90% (31-73) Lymphocytes (%) (Auto) 6% (24-48) Monocytes (%) (Auto) 4% (0-9) Eosinophils (%) (Auto) 0% (0-3) Basophils (%) (Auto) 0% (0-3) Neutrophils # (Auto) 20.3x10^3uL (1.8-7.7) Lymphocytes # (Auto) 1.2x10^3/uL (1.0-4.8) Monocytes # (Auto) 1.0x10^3/uL (0.0-1.1) Eosinophils # (Auto) 0.0x10^3/uL (0.0-0.7) Basophils # (Auto) 0.0x10^3/uL (0.0-0.2) Glucose (Fingerstick) 176mg/dL (70-99) Problem List Problems Medical Problems: (1) Acute appendicitis Status: Acute (2) Appendicitis with perforation Status: Acute (3) Diabetes Status: Acute Assessment/Plan acute appendicitis, s/p appendectomy, leukocytosis advance diet cover with abx. follow WBC Problems: JADEN CHOWDHURY MD Feb 08, 2017 11:48
[2017-02-08] MEDS: INSULIN ASPART 300 UNITS/3 ML INSULN.PEN SQ SCH ×2 (11:56→17:00)
[2017-02-08] MEDS: OXYCODONE IR 5 MG TABLET. PO PRN ×4 (12:26→22:47)
[2017-02-08] MEDS: PIPERACILLIN/TAZOBACTAM 3.375 GM in IV NORMAL SALINE 50ML 50 ML IV SCH ×2 (12:27→17:18)
[2017-02-08] MEDS: IV DEXTROSE 5%-LACT RINGERS 1,000 ML IV SCH (14:35)
[2017-02-08] MEDS: HYDROMORPHONE 2 MG/ML VIAL. IVP PRN ×2 (15:40→22:07)
--- NOTE | 2017-02-08 17:59 | PDOC ---
PROGRESS NOTES Chief Complaint Chief Complaint Appendicitis ASSESSMENT AND PLAN: 1. Appendicitis: s/p lap appy on 02/[address] Girard. recovering appropriately. 2. pain control: pt has low pain tolerance/high narcotic tolerance (poss 2/[address] drug abuse). d/w her that PO will be weaned off. can decrease interval of PO meds for now, but will not be going ome with large quantity of narcotics. pt agreeable. 3. nausea: PRN meds available 4. Constipation: narcotic induced. daily miralax 5. leukocytosis: persistent. suspect 2/2 infect/inflammation with recent surgery. monitor 6. DM: on insulin pump with adjustments acc to [facility] 7. Dispo: anticipate D/C in AM Vitals Vitals Vital Signs Date Time Temp Pulse Resp B/P Pulse Ox O2 Delivery O2 Flow Rate FiO2 02/08/17 12:26 16 Room Air 02/08/17 11:00 98.7 117 101/48 95 98.7 02/08/17 05:11 10.0 Physical Exam General: Alert, Oriented X3, No acute distress Heart: Regular rate Lungs: Clear Abdomen: Soft, Other (TTP in mid abd and pelvis, R>L) Skin: No rashes Labs LABS Laboratory Tests Test 02/07/17 18:24 02/07/17 18:56 02/07/17 21:40 02/08/17 02:10 Glucose (Fingerstick) 50mg/dL (70-99) 121mg/dL (70-99) 109mg/dL (70-99) 100mg/dL (70-99) Test 02/08/17 06:34 02/08/17 08:13 White Blood Count 22.6x10^3/uL (4.0-11.0) Red Blood Count 4.21x10^6/uL (3.50-5.40) Hemoglobin 13.2g/dL (12.0-15.5) Hematocrit 39.5% (36.0-47.0) Mean Corpuscular Volume 94fL (79-100) Mean Corpuscular Hemoglobin 31pg (25-35) Mean Corpuscular Hemoglobin Concent 33g/dL (31-37) Red Cell Distribution Width 12.2% (11.5-14.5) Platelet Count 324x10^3/uL (140-400) Neutrophils (%) (Auto) 90% (31-73) Lymphocytes (%) (Auto) 6% (24-48) Monocytes (%) (Auto) 4% (0-9) Eosinophils (%) (Auto) 0% (0-3) Basophils (%) (Auto) 0% (0-3) Neutrophils # (Auto) 20.3x10^3uL (1.8-7.7) Lymphocytes # (Auto) 1.2x10^3/uL (1.0-4.8) Monocytes # (Auto) 1.0x10^3/uL (0.0-1.1) Eosinophils # (Auto) 0.0x10^3/uL (0.0-0.7) Basophils # (Auto) 0.0x10^3/uL (0.0-0.2) Glucose (Fingerstick) 176mg/dL (70-99) Review of Systems Review of Systems c/o abd pain, moderate-severe MARK ANTHONY SHANKS MD Feb 08, 2017 17:59
[2017-02-08] MEDS ORDERED: OXYCODONE IR 5 MG TABLET. PO ONE (18:00)
--- NOTE | 2017-02-08 20:01 | HP ---
ADMIT DATE: 02/07/2017 CHIEF COMPLAINT: Appendicitis. HISTORY OF PRESENT ILLNESS: The patient is a 21-year-old woman who presented to the Emergency Room with right lower quadrant pain lasting for about 24 hours. She relates that this started the night prior to presentation to the Emergency Room. Initially thought this may be secondary to ovarian issues or her period, which is finishing. She used heat and ibuprofen. However, pain became worse and she finally decided to come to the Emergency Room. CT here indeed revealed appendicitis. Dr. Girard from Surgery was consulted and took the patient to the OR directly from ER. She is now recovering on the floor without unexpected issues. PAST MEDICAL HISTORY: Diabetes mellitus type 1 starting at age 6, has insulin pump, multidrug abuse. FAMILY HISTORY: No other diabetes and no GI issues. SOCIAL HISTORY: Lives with her girlfriend, smokes about a pack a day, uses meth, cocaine, cannabis "occasionally." ALLERGIES: No known drug allergies. MEDICATIONS: Insulin. REVIEW OF SYSTEMS: Persistent postsurgical abdominal pain. Denies any nausea, vomiting or any other symptoms. PHYSICAL EXAMINATION: VITAL SIGNS: Show a blood pressure of 114/51, heart rate at 98, respiratory rate at 18. She is afebrile. GENERAL: This is an obese 21-year-old woman, lethargic, oriented, in no acute distress. HEENT: Shows no scleral icterus. NECK: Supple. LUNGS: Clear to auscultation. HEART: Regular rate and rhythm. ABDOMEN: Has tenderness to palpation in the right lower quadrant and mid abdomen. EXTREMITIES: Show no edema, no clubbing, no cyanosis. SKIN: Warm, soft and dry. LABORATORY DATA: CBC from today shows a WBC of 22.2, hemoglobin 14.5, platelets of 333. Differential with 78% segs, 7 bands. Chemistries show a BUN and creatinine of 12 and 0.7. Electrolytes within normal. LFTs within normal as is lipase. Urine with greater than 40 rbc's, no wbc's. IMAGING: Abdomen and pelvis CT in the Emergency Room shows acute appendicitis with moderate periappendiceal inflammation as well as small amount of free fluid in the deep pelvis, small right ovarian cyst. ASSESSMENT AND PLAN: The patient is a 21-year-old woman with appendicitis, now status post laparoscopic appendectomy, recovering fairly well. Pain is a significant issue for her. She still has p.o. and IV. We will continue regimen for now. Leukocytosis is most likely secondary to infection/inflammation. We will monitor. Diabetes mellitus is monitored by pump. She checks regularly on her own and adjusts. We will help her with a sliding scale here for monitoring purposes. MARK ANTHONY SHANKS MD DR: UR/nts JOB#: [id number] / [id number] LALA
[2017-02-08] MEDS: AMOXICILLIN/K CLAV 875/125MG TABLET. PO SCH (21:09)
--- NOTE | 2017-02-08 22:40 | OP ---
DATE OF SURGERY: 02/07/2017 PREOPERATIVE DIAGNOSIS: Acute appendicitis. POSTOPERATIVE DIAGNOSIS: Acute appendicitis. PROCEDURE: Laparoscopic appendectomy. SURGEON: Venu Chowdhury MD ANESTHESIA: General. ESTIMATED BLOOD LOSS: 25 mL. IV FLUID: 800 mL. URINE OUTPUT: 300 mL. INDICATIONS: The patient is a 21-year-old with right lower quadrant pain and a CT consistent with appendicitis. She is brought for appendectomy. OPERATIVE FINDINGS: She did indeed have an acute appendicitis without obvious evidence of perforation. She had a large right ovarian cyst present. Visual inspection of the remainder of the abdomen failed to reveal obvious abnormalities. DESCRIPTION OF PROCEDURE: The patient was brought to the operating suite, given a general endotracheal anesthetic. Ortiz catheter was placed to ____ drainage, and the abdomen was prepped and draped in usual sterile fashion. A supraumbilical incision was made, and a 5-mm Visiport was used to gain access into the abdominal cavity taking care to avoid injury to abdominal contents. Pneumoperitoneum was established. Camera was inserted, and under direct vision, the suprapubic and left lower quadrant ports were placed. The supraumbilical port was converted to 12 mm for instrumentation. With the table rolled to the left in slight Trendelenburg, we identified the base of the appendix and found the remainder of the appendix to be adherent to the lateral wall and cecum. A small ____ was created between the base of the appendix and the mesoappendix, and an Endo-RITO stapler using a tissue load was used to amputate the base of the appendix. This allowed us to gradually free the appendix from the lateral attachments and identify the mesoappendix for division with a vascular load of the Endo-RITO. Some medium large clips were used to augment hemostasis along the staple line and the mesoappendix. The appendix was placed in an EndoCatch bag. Intra-abdominal pressure was decreased to 6 cm of water. No bleeding from the appendiceal stump or the mesoappendix was seen. Table returned to level, appendix was delivered through the umbilical incision. Umbilical incision was closed with interrupted 0 Vicryl suture. Again, at 6 cm of water pressure intraabdominally, there was no bleeding from the umbilical closure or from the left lower quadrant port site after its removal. Abdomen was decompressed, camera was slowly removed, no was bleeding seen. Skin incisions were closed with subcuticular 4-0 Monocryl and Steri-Strips or 5-0 nylon. Sterile dressings were applied. Ortiz catheter was removed. The patient was awakened from her anesthetic and was taken to the recovery room in satisfactory condition. VENU CHOWDHURY MD DR: VENANCIO/peter JOB#: [id number] / [id number]
[2017-02-09] MEDS: OXYCODONE IR 5 MG TABLET. PO PRN ×3 (02:03→11:37)
[2017-02-09 03:00] VITALS: BP 104/68
[2017-02-09] MEDS ORDERED: CEFTRIAXONE SODIUM 1 GM in IV NORMAL SALINE 50ML 50 ML IV SCH (04:00)
[2017-02-09] MEDS: ACETAMINOPHEN 325 MG TABLET. PO PRN ×2 (04:01→11:36)
[2017-02-09] MEDS: HYDROMORPHONE 2 MG/ML VIAL. IVP PRN ×2 (04:03→09:17)
[2017-02-09] MEDS: POTASSIUM CL 20MEQ-0.45% NACL 1,000 ML IV SCH ×2 (05:38→10:46)
[2017-02-09 06:20] LABS: BASO # 0.1 x10^3/uL (0.0-0.2); BASO % 0 % (0-3); EOS % 1 % (0-3); HEMATOCRIT 38.5 % (36.0-47.0); LYMPH # 2.6 x10^3/uL (1.0-4.8); LYMPH % 16 % (24-48); MEAN CORPUSCULAR HEMOGLOBIN 31 pg (25-35); MEAN CORPUSCULAR HGB CONC 34 g/dL (31-37); MEAN CORPUSCULAR VOLUME 93 fL (79-100); MONO % 7 % (0-9); NEUT % 76 % (31-73); PLATELET COUNT 350 x10^3/uL (140-400); RED BLOOD COUNT 4.15 x10^6/uL (3.50-5.40); RED CELL DISTRIBUTION WIDTH 12.1 % (11.5-14.5); WHITE BLOOD COUNT 15.9 x10^3/uL (4.0-11.0)
[2017-02-09 06:43] LABS: ALBUMIN 2.8 g/dL (3.4-5.0); ALBUMIN/GLOBULIN RATIO 0.7 (1.0-1.7); CALCIUM 8.4 mg/dL (8.5-10.1); CREATININE 0.8 mg/dL (0.6-1.0); GFR 89.7; POTASSIUM 3.2 mmol/L (3.5-5.1); TOTAL BILIRUBIN 0.6 mg/dL (0.2-1.0); TOTAL PROTEIN 6.6 g/dL (6.4-8.2)
[2017-02-09 07:00] VITALS: BP 124/78
[2017-02-09] MEDS: INSULIN ASPART 300 UNITS/3 ML INSULN.PEN SQ SCH ×3 (08:00→17:00)
[2017-02-09] MEDS: NICOTINE 21MG PATCH. TD SCH (09:00)
[2017-02-09] MEDS: AMOXICILLIN/K CLAV 875/125MG TABLET. PO SCH (09:00)
[2017-02-09] MEDS: POLYETHYLENE GLYCOL 3350 17 GM PACKET. PO SCH ×2 (09:00)
[2017-02-09] MEDS: DOCUSATE SODIUM 100 MG CAPSULE PO SCH ×2 (09:00→21:26)
[2017-02-09] MEDS: ENOXAPARIN 40 MG/0.4 ML DISP.SYRIN. SQ SCH (09:00)
--- NOTE | 2017-02-09 09:07 | PDOC ---
JEOVANY ZHANG [employer] 02/09/17 0907: SURGICAL PROGRESS NOTE Subjective significant pain to abdomen and back + nausea fevers, chills Vital Signs Vital Signs Date Time Temp Pulse Resp B/P Pulse Ox O2 Delivery O2 Flow Rate FiO2 02/09/17 08:34 Room Air 02/09/17 07:00 98.6 125 22 124/78 92 98.6 I&O Intake and Output 02/09/17 07:00 Intake Total 300 ml Balance 300 ml Intake Oral 300 ml # Voids 6 General: Alert, Cooperative, Other (acute discomfort ) Abdomen: Soft, Other (moderately distended, moderate tenderness to lower abdomen ) Labs Laboratory Tests Test 02/07/17 13:52 02/07/17 14:49 02/07/17 15:15 02/07/17 17:20 Bedside Urine HCG, Qualitative Hcg negative (Negative) Urine Collection Type Unknown Urine Color Yellow Urine Clarity Clear Urine pH 8.0 Urine Specific [place] 1.020 Urine Protein Negativemg/dL (NEG-TRACE) Urine Glucose (UA) Negativemg/dL (NEG) Urine Ketones (Stick) Tracemg/dL (NEG) Urine Blood Large (NEG) Urine Nitrite Negative (NEG) Urine Bilirubin Negative (NEG) Urine Urobilinogen Dipstick 0.2mg/dL (0.2 mg/dL) Urine Leukocyte Esterase Negative (NEG) Urine RBC >40/HPF (0-2) Urine WBC 0/HPF (0-4) Urine Squamous Epithelial Cells Few/LPF Urine Bacteria 0/HPF (0-FEW) Urine Mucus Marked/LPF White Blood Count 22.2x10^3/uL (4.0-11.0) Red Blood Count 4.63x10^6/uL (3.50-5.40) Hemoglobin 14.5g/dL (12.0-15.5) Hematocrit 43.0% (36.0-47.0) Mean Corpuscular Volume 93fL (79-100) Mean Corpuscular Hemoglobin 31pg (25-35) Mean Corpuscular Hemoglobin Concent 34g/dL (31-37) Red Cell Distribution Width 12.3% (11.5-14.5) Platelet Count 333x10^3/uL (140-400) Neutrophils (%) (Auto) 84% (31-73) Lymphocytes (%) (Auto) 11% (24-48) Monocytes (%) (Auto) 4% (0-9) Eosinophils (%) (Auto) 1% (0-3) Basophils (%) (Auto) 0% (0-3) Neutrophils # (Auto) 18.7x10^3uL (1.8-7.7) Lymphocytes # (Auto) 2.3x10^3/uL (1.0-4.8) Monocytes # (Auto) 1.0x10^3/uL (0.0-1.1) Eosinophils # (Auto) 0.1x10^3/uL (0.0-0.7) Basophils # (Auto) 0.1x10^3/uL (0.0-0.2) Segmented Neutrophils % 78% (35-66) Band Neutrophils % 7% (0-9) Lymphocytes % 10% (24-48) Atypical Lymphocytes % (Manual) 1% (0-0) Monocytes % 2% (0-10) Eosinophils % 2% (0-5) Platelet Estimate Adequate (ADEQUATE) Sodium Level 140mmol/L (136-145) Potassium Level 3.6mmol/L (3.5-5.1) Chloride Level 105mmol/L (98-107) Carbon Dioxide Level 26mmol/L (21-32) Anion Gap 9 (6-14) Blood Urea Nitrogen 12mg/dL (7-20) Creatinine 0.7mg/dL (0.6-1.0) Estimated GFR (Cockcroft-Gault) 104.6 BUN/Creatinine Ratio 17 (6-20) Glucose Level 103mg/dL (70-99) Calcium Level 9.1mg/dL (8.5-10.1) Total Bilirubin 0.5mg/dL (0.2-1.0) Aspartate Amino Transf (AST/SGOT) 14U/L (15-37) Alanine Aminotransferase (ALT/SGPT) 22U/L (14-59) Alkaline Phosphatase 111U/L (46-116) Total Protein 7.6g/dL (6.4-8.2) Albumin 3.8g/dL (3.4-5.0) Albumin/Globulin Ratio 1.0 (1.0-1.7) Lipase 62U/L (73-393) Lactic Acid Level 0.7mmol/L (0.4-2.0) Test 02/07/17 18:24 02/07/17 18:56 02/07/17 21:40 02/08/17 02:10 Glucose (Fingerstick) 50mg/dL (70-99) 121mg/dL (70-99) 109mg/dL (70-99) 100mg/dL (70-99) Test 02/08/17 06:34 02/08/17 08:13 02/08/17 11:14 02/09/17 05:21 White Blood Count 22.6x10^3/uL (4.0-11.0) 15.9x10^3/uL (4.0-11.0) Red Blood Count 4.21x10^6/uL (3.50-5.40) 4.15x10^6/uL (3.50-5.40) Hemoglobin 13.2g/dL (12.0-15.5) 13.0g/dL (12.0-15.5) Hematocrit 39.5% (36.0-47.0) 38.5% (36.0-47.0) Mean Corpuscular Volume 94fL (79-100) 93fL (79-100) Mean Corpuscular Hemoglobin 31pg (25-35) 31pg (25-35) Mean Corpuscular Hemoglobin Concent 33g/dL (31-37) 34g/dL (31-37) Red Cell Distribution Width 12.2% (11.5-14.5) 12.1% (11.5-14.5) Platelet Count 324x10^3/uL (140-400) 350x10^3/uL (140-400) Neutrophils (%) (Auto) 90% (31-73) 76% (31-73) Lymphocytes (%) (Auto) 6% (24-48) 16% (24-48) Monocytes (%) (Auto) 4% (0-9) 7% (0-9) Eosinophils (%) (Auto) 0% (0-3) 1% (0-3) Basophils (%) (Auto) 0% (0-3) 0% (0-3) Neutrophils # (Auto) 20.3x10^3uL (1.8-7.7) 12.1x10^3uL (1.8-7.7) Lymphocytes # (Auto) 1.2x10^3/uL (1.0-4.8) 2.6x10^3/uL (1.0-4.8) Monocytes # (Auto) 1.0x10^3/uL (0.0-1.1) 1.1x10^3/uL (0.0-1.1) Eosinophils # (Auto) 0.0x10^3/uL (0.0-0.7) 0.1x10^3/uL (0.0-0.7) Basophils # (Auto) 0.0x10^3/uL (0.0-0.2) 0.1x10^3/uL (0.0-0.2) Glucose (Fingerstick) 176mg/dL (70-99) 206mg/dL (70-99) Sodium Level 140mmol/L (136-145) Potassium Level 3.2mmol/L (3.5-5.1) Chloride Level 102mmol/L (98-107) Carbon Dioxide Level 25mmol/L (21-32) Anion Gap 13 (6-14) Blood Urea Nitrogen 7mg/dL (7-20) Creatinine 0.8mg/dL (0.6-1.0) Estimated GFR (Cockcroft-Gault) 89.7 BUN/Creatinine Ratio 9 (6-20) Glucose Level 114mg/dL (70-99) Calcium Level 8.4mg/dL (8.5-10.1) Total Bilirubin 0.6mg/dL (0.2-1.0) Aspartate Amino Transf (AST/SGOT) 14U/L (15-37) Alanine Aminotransferase (ALT/SGPT) 15U/L (14-59) Alkaline Phosphatase 94U/L (46-116) Total Protein 6.6g/dL (6.4-8.2) Albumin 2.8g/dL (3.4-5.0) Albumin/Globulin Ratio 0.7 (1.0-1.7) Test 02/09/17 05:38 Lactic Acid Level 0.9mmol/L (0.4-2.0) Laboratory Tests Test 02/08/17 11:14 02/09/17 05:21 02/09/17 05:38 Glucose (Fingerstick) 206mg/dL (70-99) White Blood Count 15.9x10^3/uL (4.0-11.0) Red Blood Count 4.15x10^6/uL (3.50-5.40) Hemoglobin 13.0g/dL (12.0-15.5) Hematocrit 38.5% (36.0-47.0) Mean Corpuscular Volume 93fL (79-100) Mean Corpuscular Hemoglobin 31pg (25-35) Mean Corpuscular Hemoglobin Concent 34g/dL (31-37) Red Cell Distribution Width 12.1% (11.5-14.5) Platelet Count 350x10^3/uL (140-400) Neutrophils (%) (Auto) 76% (31-73) Lymphocytes (%) (Auto) 16% (24-48) Monocytes (%) (Auto) 7% (0-9) Eosinophils (%) (Auto) 1% (0-3) Basophils (%) (Auto) 0% (0-3) Neutrophils # (Auto) 12.1x10^3uL (1.8-7.7) Lymphocytes # (Auto) 2.6x10^3/uL (1.0-4.8) Monocytes # (Auto) 1.1x10^3/uL (0.0-1.1) Eosinophils # (Auto) 0.1x10^3/uL (0.0-0.7) Basophils # (Auto) 0.1x10^3/uL (0.0-0.2) Sodium Level 140mmol/L (136-145) Potassium Level 3.2mmol/L (3.5-5.1) Chloride Level 102mmol/L (98-107) Carbon Dioxide Level 25mmol/L (21-32) Anion Gap 13 (6-14) Blood Urea Nitrogen 7mg/dL (7-20) Creatinine 0.8mg/dL (0.6-1.0) Estimated GFR (Cockcroft-Gault) 89.7 BUN/Creatinine Ratio 9 (6-20) Glucose Level 114mg/dL (70-99) Calcium Level 8.4mg/dL (8.5-10.1) Total Bilirubin 0.6mg/dL (0.2-1.0) Aspartate Amino Transf (AST/SGOT) 14U/L (15-37) Alanine Aminotransferase (ALT/SGPT) 15U/L (14-59) Alkaline Phosphatase 94U/L (46-116) Total Protein 6.6g/dL (6.4-8.2) Albumin 2.8g/dL (3.4-5.0) Albumin/Globulin Ratio 0.7 (1.0-1.7) Lactic Acid Level 0.9mmol/L (0.4-2.0) Problem List Problems Medical Problems: (1) Acute appendicitis Status: Acute (2) Appendicitis with perforation Status: Acute (3) Diabetes Status: Acute Assessment/Plan s/p appy fever-tmax 101.8, tachycardia WBC 15, down from yesterday CT abd/pelvis consult ID changed abx to Zosyn Problems: JADEN CHOWDHURY MD 02/09/17 1448: SURGICAL PROGRESS NOTE Assessment/Plan pt seen earlier parents at bedside CT shows slight increase in fluid in pelvis continue antibiotics appreciate ID input follow labs and temp BLOCK LAYER for pain control Problems: JEOVANY ZHANG APRN Feb 09, 2017 09:07 JADEN CHOWDHURY MD Feb 09, 2017 14:48
[2017-02-09] MEDS ORDERED: CONTRAST GIVEN MC PRN (09:15)
[2017-02-09] MEDS ORDERED: IOHEXOL 300 MG/ML 75 ML VIAL IV ONE (09:30)
[2017-02-09] MEDS ORDERED: IOHEXOL 240 MG/ML 50ML VIAL. PO ONE (09:30)
[2017-02-09] MEDS ORDERED: LORAZEPAM 1 MG TABLET. PO PRN (10:30)
[2017-02-09] MEDS: ONDANSETRON PF 4 MG/2 ML VIAL. IV PRN (10:42)
[2017-02-09] MEDS: IV DEXTROSE 5%-LACT RINGERS 1,000 ML IV SCH (10:46)
[2017-02-09] MEDS: PIPERACILLIN/TAZOBACTAM 3.375 GM in IV NORMAL SALINE 50ML 50 ML IV SCH ×3 (10:46→23:40)
[2017-02-09] MEDS: LORAZEPAM 2 MG/ML VIAL IV PRN ×2 (10:48→17:46)
[2017-02-09 10:58] VITALS: BP 126/77
--- NOTE | 2017-02-09 11:41 | PDOC ---
Infectious Disease Note Vital Sign Vital Signs Vital Signs Date Time Temp Pulse Resp B/P Pulse Ox O2 Delivery O2 Flow Rate FiO2 02/09/17 10:58 100.9 131 20 126/77 89 Room Air 100.9 Labs Lab Laboratory Tests Test 02/09/17 05:21 02/09/17 05:38 White Blood Count 15.9x10^3/uL (4.0-11.0) Red Blood Count 4.15x10^6/uL (3.50-5.40) Hemoglobin 13.0g/dL (12.0-15.5) Hematocrit 38.5% (36.0-47.0) Mean Corpuscular Volume 93fL (79-100) Mean Corpuscular Hemoglobin 31pg (25-35) Mean Corpuscular Hemoglobin Concent 34g/dL (31-37) Red Cell Distribution Width 12.1% (11.5-14.5) Platelet Count 350x10^3/uL (140-400) Neutrophils (%) (Auto) 76% (31-73) Lymphocytes (%) (Auto) 16% (24-48) Monocytes (%) (Auto) 7% (0-9) Eosinophils (%) (Auto) 1% (0-3) Basophils (%) (Auto) 0% (0-3) Neutrophils # (Auto) 12.1x10^3uL (1.8-7.7) Lymphocytes # (Auto) 2.6x10^3/uL (1.0-4.8) Monocytes # (Auto) 1.1x10^3/uL (0.0-1.1) Eosinophils # (Auto) 0.1x10^3/uL (0.0-0.7) Basophils # (Auto) 0.1x10^3/uL (0.0-0.2) Sodium Level 140mmol/L (136-145) Potassium Level 3.2mmol/L (3.5-5.1) Chloride Level 102mmol/L (98-107) Carbon Dioxide Level 25mmol/L (21-32) Anion Gap 13 (6-14) Blood Urea Nitrogen 7mg/dL (7-20) Creatinine 0.8mg/dL (0.6-1.0) Estimated GFR (Cockcroft-Gault) 89.7 BUN/Creatinine Ratio 9 (6-20) Glucose Level 114mg/dL (70-99) Calcium Level 8.4mg/dL (8.5-10.1) Total Bilirubin 0.6mg/dL (0.2-1.0) Aspartate Amino Transf (AST/SGOT) 14U/L (15-37) Alanine Aminotransferase (ALT/SGPT) 15U/L (14-59) Alkaline Phosphatase 94U/L (46-116) Total Protein 6.6g/dL (6.4-8.2) Albumin 2.8g/dL (3.4-5.0) Albumin/Globulin Ratio 0.7 (1.0-1.7) Lactic Acid Level 0.9mmol/L (0.4-2.0) Objective Assessment H/o MRSA Appendix perforation s/p lap appendectomy 02/07. ? fluid collection on CT Leukocytosis - improved ? Pneumonitis Fever - Tmax 101.8 Abdominal pain DM Plan Plan of Care Await surgical eval of CT abdomen and pelvis Continue zosyn Add Zyvox (given age and h/o substance abuse it will likely to difficult to get adequate Vanc levels at safe dosing levels) and Fluconazole F/u labs/cults Thank you D/w family # [id number] KINJAL REAL MD Feb 09, 2017 11:41
[2017-02-09] MEDS ORDERED: HYDROMORPHONE 2 MG/ML VIAL. IV PRN ×2 (11:45→12:00)
--- NOTE | 2017-02-09 11:52 | RAD ---
CT of the abdomen and pelvis with contrast, 02/09/2017: History: Post op pain Comparison is made to a study from 02/07/2017. There is moderate streaky atelectasis/infiltrate in both lung bases posteriorly. There is a tiny amount of bilateral pleural fluid. The liver is unremarkable. No gallbladder abnormality is seen. The pancreas shows no abnormality. The spleen is of normal size. No renal abnormality is detected. There has been an interval appendectomy. Surgical clips and sutures are present at the operative site. There is moderate streaky increased density in the mesenteric fat in this region with a tiny amount of free fluid extending into the right paracolic gutter and right anterior pararenal space. There is a moderate amount of free fluid in the deep pelvis centered in the cul-de-sac region. It extends laterally and superiorly, more so on the right, extending superior to the level of the uterus. No discrete saavedra or definite encapsulation is seen. The amount of fluid has increased since the previous study. There is a 4 cm cystic structure along the right anterolateral uterine margin which appears to arise from the right ovary. Its medial wall is thin and smooth. It is of similar size when compared to the 02/07/2017 exam. There is a moderate amount of gas in the colon extending down to the rectal level. The small bowel loops are unremarkable. There are prominent mesenteric lymph nodes in the right lower quadrant, also present on the previous study and presumably reactive in nature. IMPRESSION: 1. Moderate pericecal inflammation with a small amount of free fluid status post appendectomy. 2. A deep pelvic fluid collection has increased slightly in size since 02/07/2017. Infection or early abscess cannot be excluded. 3. Persistent right ovarian cyst. 4. Moderate atelectasis and/or pneumonitis has developed posteriorly in both lung bases with a tiny amount of bilateral pleural fluid. PQRS Compliance Statement: One or more of the following individualized dose reduction techniques were utilized for this examination: 1. Automated exposure control 2. Adjustment of the mA and/or kV according to patient size 3. Use of iterative reconstruction technique
[2017-02-09] MEDS ORDERED: POTASSIUM CHLORIDE 20 MEQ TABLET.ER. PO ONE (12:00)
--- NOTE | 2017-02-09 12:22 | PDOC ---
PROGRESS NOTES Chief Complaint Chief Complaint - appendicitis: s/p laparoscopic appendectomy on 02/[address] Girard - sepsis, leukocytosis; suspect 2/2 infect/inflammation with recent surgery - 4 cm R ovarian cyst, found on CT and likely symptomatic - DM History of Present Illness History of Present Illness Patient with girlfriend and parents at bedside. Has had a rough time since last night. Has shown signs of sepsis with HR in the 120-130s and elevated WBC. Pt has been having fevers throughout the morning, with Tmax 101.8 at 0300. Pt reports 10/10 pain in the abdomen, pelvis, and back. Pt with acute anxiety, requiring ativan. Just returned from CT which was discussed with radiologist. No signs of abscess, but 4 cm R ovarian cyst noted. Family concerned with pt's condition. Questions and concerns addressed. Pt and family agreeable to plan to be seen by gynecology with possible surgery tomorrow for ovarian cyst. Vitals Vitals Vital Signs Date Time Temp Pulse Resp B/P Pulse Ox O2 Delivery O2 Flow Rate FiO2 02/09/17 11:51 Nasal Cannula 2.0 02/09/17 10:58 100.9 131 20 126/77 89 100.9 Physical Exam General: Alert, Cooperative, moderate distress, Other (acute discomfort ) Heart: Regular rate, Normal S1 Lungs: Clear Abdomen: Other (moderately distended, tenderness to lower abdomen, mildly firm) Extremities: No cyanosis, No edema Skin: No rashes Labs LABS Laboratory Tests Test 02/09/17 05:21 02/09/17 05:38 White Blood Count 15.9x10^3/uL (4.0-11.0) Red Blood Count 4.15x10^6/uL (3.50-5.40) Hemoglobin 13.0g/dL (12.0-15.5) Hematocrit 38.5% (36.0-47.0) Mean Corpuscular Volume 93fL (79-100) Mean Corpuscular Hemoglobin 31pg (25-35) Mean Corpuscular Hemoglobin Concent 34g/dL (31-37) Red Cell Distribution Width 12.1% (11.5-14.5) Platelet Count 350x10^3/uL (140-400) Neutrophils (%) (Auto) 76% (31-73) Lymphocytes (%) (Auto) 16% (24-48) Monocytes (%) (Auto) 7% (0-9) Eosinophils (%) (Auto) 1% (0-3) Basophils (%) (Auto) 0% (0-3) Neutrophils # (Auto) 12.1x10^3uL (1.8-7.7) Lymphocytes # (Auto) 2.6x10^3/uL (1.0-4.8) Monocytes # (Auto) 1.1x10^3/uL (0.0-1.1) Eosinophils # (Auto) 0.1x10^3/uL (0.0-0.7) Basophils # (Auto) 0.1x10^3/uL (0.0-0.2) Sodium Level 140mmol/L (136-145) Potassium Level 3.2mmol/L (3.5-5.1) Chloride Level 102mmol/L (98-107) Carbon Dioxide Level 25mmol/L (21-32) Anion Gap 13 (6-14) Blood Urea Nitrogen 7mg/dL (7-20) Creatinine 0.8mg/dL (0.6-1.0) Estimated GFR (Cockcroft-Gault) 89.7 BUN/Creatinine Ratio 9 (6-20) Glucose Level 114mg/dL (70-99) Calcium Level 8.4mg/dL (8.5-10.1) Total Bilirubin 0.6mg/dL (0.2-1.0) Aspartate Amino Transf (AST/SGOT) 14U/L (15-37) Alanine Aminotransferase (ALT/SGPT) 15U/L (14-59) Alkaline Phosphatase 94U/L (46-116) Total Protein 6.6g/dL (6.4-8.2) Albumin 2.8g/dL (3.4-5.0) Albumin/Globulin Ratio 0.7 (1.0-1.7) Lactic Acid Level 0.9mmol/L (0.4-2.0) Review of Systems Review of Systems + fevers; 100.9, Tmax 101.8 + pelvic, abdominal, back pain + anxiety + nausea Assessment and Plan Assessmemt and Plan ASSESSMENT: - appendicitis: s/p lap appy on 02/[address] Girard. - sepsis, leukocytosis; suspect 2/2 infect/inflammation with recent surgery. - 4 cm R ovarian cyst, visible on CT and likely symptomatic - DM PLAN: - consulting Dr Vazquez, ob-roll icer machine; for 4 cm R ovarian cyst found on CT and reported 10/10 pelvic, lower abdominal, and back pain - increasing Dilaudid 1-2 mg q 2h for worsening pain - Ativan 1 mg IV q 6 h prn anxiety - cont antibiotics per ID; pip/tazo for now - 40 mEq KCl for K+ 3.2 - cont sepsis w/u and monitoring; pulse 131, WBC 15.9 from 22.6, T 100.9 with Tmax 101.8 - cont PRN nausea control - cont daily miralax for ?narcotic-induced constipation - repeat daily labs Total time 32 minutes Problems: Comment Review of Relevant I have reviewed the following items dara (where applicable) has been applied. Labs Laboratory Tests Test 02/07/17 13:52 02/07/17 14:49 02/07/17 15:15 02/07/17 17:20 Bedside Urine HCG, Qualitative Hcg negative (Negative) Urine Collection Type Unknown Urine Color Yellow Urine Clarity Clear Urine pH 8.0 Urine Specific Aguirre 1.020 Urine Protein Negativemg/dL (NEG-TRACE) Urine Glucose (UA) Negativemg/dL (NEG) Urine Ketones (Stick) Tracemg/dL (NEG) Urine Blood Large (NEG) Urine Nitrite Negative (NEG) Urine Bilirubin Negative (NEG) Urine Urobilinogen Dipstick 0.2mg/dL (0.2 mg/dL) Urine Leukocyte Esterase Negative (NEG) Urine RBC >40/HPF (0-2) Urine WBC 0/HPF (0-4) Urine Squamous Epithelial Cells Few/LPF Urine Bacteria 0/HPF (0-FEW) Urine Mucus Marked/LPF White Blood Count 22.2x10^3/uL (4.0-11.0) Red Blood Count 4.63x10^6/uL (3.50-5.40) Hemoglobin 14.5g/dL (12.0-15.5) Hematocrit 43.0% (36.0-47.0) Mean Corpuscular Volume 93fL (79-100) Mean Corpuscular Hemoglobin 31pg (25-35) Mean Corpuscular Hemoglobin Concent 34g/dL (31-37) Red Cell Distribution Width 12.3% (11.5-14.5) Platelet Count 333x10^3/uL (140-400) Neutrophils (%) (Auto) 84% (31-73) Lymphocytes (%) (Auto) 11% (24-48) Monocytes (%) (Auto) 4% (0-9) Eosinophils (%) (Auto) 1% (0-3) Basophils (%) (Auto) 0% (0-3) Neutrophils # (Auto) 18.7x10^3uL (1.8-7.7) Lymphocytes # (Auto) 2.3x10^3/uL (1.0-4.8) Monocytes # (Auto) 1.0x10^3/uL (0.0-1.1) Eosinophils # (Auto) 0.1x10^3/uL (0.0-0.7) Basophils # (Auto) 0.1x10^3/uL (0.0-0.2) Segmented Neutrophils % 78% (35-66) Band Neutrophils % 7% (0-9) Lymphocytes % 10% (24-48) Atypical Lymphocytes % (Manual) 1% (0-0) Monocytes % 2% (0-10) Eosinophils % 2% (0-5) Platelet Estimate Adequate (ADEQUATE) Sodium Level 140mmol/L (136-145) Potassium Level 3.6mmol/L (3.5-5.1) Chloride Level 105mmol/L (98-107) Carbon Dioxide Level 26mmol/L (21-32) Anion Gap 9 (6-14) Blood Urea Nitrogen 12mg/dL (7-20) Creatinine 0.7mg/dL (0.6-1.0) Estimated GFR (Cockcroft-Gault) 104.6 BUN/Creatinine Ratio 17 (6-20) Glucose Level 103mg/dL (70-99) Calcium Level 9.1mg/dL (8.5-10.1) Total Bilirubin 0.5mg/dL (0.2-1.0) Aspartate Amino Transf (AST/SGOT) 14U/L (15-37) Alanine Aminotransferase (ALT/SGPT) 22U/L (14-59) Alkaline Phosphatase 111U/L (46-116) Total Protein 7.6g/dL (6.4-8.2) Albumin 3.8g/dL (3.4-5.0) Albumin/Globulin Ratio 1.0 (1.0-1.7) Lipase 62U/L (73-393) Lactic Acid Level 0.7mmol/L (0.4-2.0) Test 02/07/17 18:24 02/07/17 18:56 02/07/17 21:40 02/08/17 02:10 Glucose (Fingerstick) 50mg/dL (70-99) 121mg/dL (70-99) 109mg/dL (70-99) 100mg/dL (70-99) Test 02/08/17 06:34 02/08/17 08:13 02/08/17 11:14 02/09/17 05:21 White Blood Count 22.6x10^3/uL (4.0-11.0) 15.9x10^3/uL (4.0-11.0) Red Blood Count 4.21x10^6/uL (3.50-5.40) 4.15x10^6/uL (3.50-5.40) Hemoglobin 13.2g/dL (12.0-15.5) 13.0g/dL (12.0-15.5) Hematocrit 39.5% (36.0-47.0) 38.5% (36.0-47.0) Mean Corpuscular Volume 94fL (79-100) 93fL (79-100) Mean Corpuscular Hemoglobin 31pg (25-35) 31pg (25-35) Mean Corpuscular Hemoglobin Concent 33g/dL (31-37) 34g/dL (31-37) Red Cell Distribution Width 12.2% (11.5-14.5) 12.1% (11.5-14.5) Platelet Count 324x10^3/uL (140-400) 350x10^3/uL (140-400) Neutrophils (%) (Auto) 90% (31-73) 76% (31-73) Lymphocytes (%) (Auto) 6% (24-48) 16% (24-48) Monocytes (%) (Auto) 4% (0-9) 7% (0-9) Eosinophils (%) (Auto) 0% (0-3) 1% (0-3) Basophils (%) (Auto) 0% (0-3) 0% (0-3) Neutrophils # (Auto) 20.3x10^3uL (1.8-7.7) 12.1x10^3uL (1.8-7.7) Lymphocytes # (Auto) 1.2x10^3/uL (1.0-4.8) 2.6x10^3/uL (1.0-4.8) Monocytes # (Auto) 1.0x10^3/uL (0.0-1.1) 1.1x10^3/uL (0.0-1.1) Eosinophils # (Auto) 0.0x10^3/uL (0.0-0.7) 0.1x10^3/uL (0.0-0.7) Basophils # (Auto) 0.0x10^3/uL (0.0-0.2) 0.1x10^3/uL (0.0-0.2) Glucose (Fingerstick) 176mg/dL (70-99) 206mg/dL (70-99) Sodium Level 140mmol/L (136-145) Potassium Level 3.2mmol/L (3.5-5.1) Chloride Level 102mmol/L (98-107) Carbon Dioxide Level 25mmol/L (21-32) Anion Gap 13 (6-14) Blood Urea Nitrogen 7mg/dL (7-20) Creatinine 0.8mg/dL (0.6-1.0) Estimated GFR (Cockcroft-Gault) 89.7 BUN/Creatinine Ratio 9 (6-20) Glucose Level 114mg/dL (70-99) Calcium Level 8.4mg/dL (8.5-10.1) Total Bilirubin 0.6mg/dL (0.2-1.0) Aspartate Amino Transf (AST/SGOT) 14U/L (15-37) Alanine Aminotransferase (ALT/SGPT) 15U/L (14-59) Alkaline Phosphatase 94U/L (46-116) Total Protein 6.6g/dL (6.4-8.2) Albumin 2.8g/dL (3.4-5.0) Albumin/Globulin Ratio 0.7 (1.0-1.7) Test 3/16/17 05:38 Lactic Acid Level 0.9mmol/L (0.4-2.0) Laboratory Tests Test 02/09/17 05:21 02/09/17 05:38 White Blood Count 15.9x10^3/uL (4.0-11.0) Red Blood Count 4.15x10^6/uL (3.50-5.40) Hemoglobin 13.0g/dL (12.0-15.5) Hematocrit 38.5% (36.0-47.0) Mean Corpuscular Volume 93fL (79-100) Mean Corpuscular Hemoglobin 31pg (25-35) Mean Corpuscular Hemoglobin Concent 34g/dL (31-37) Red Cell Distribution Width 12.1% (11.5-14.5) Platelet Count 350x10^3/uL (140-400) Neutrophils (%) (Auto) 76% (31-73) Lymphocytes (%) (Auto) 16% (24-48) Monocytes (%) (Auto) 7% (0-9) Eosinophils (%) (Auto) 1% (0-3) Basophils (%) (Auto) 0% (0-3) Neutrophils # (Auto) 12.1x10^3uL (1.8-7.7) Lymphocytes # (Auto) 2.6x10^3/uL (1.0-4.8) Monocytes # (Auto) 1.1x10^3/uL (0.0-1.1) Eosinophils # (Auto) 0.1x10^3/uL (0.0-0.7) Basophils # (Auto) 0.1x10^3/uL (0.0-0.2) Sodium Level 140mmol/L (136-145) Potassium Level 3.2mmol/L (3.5-5.1) Chloride Level 102mmol/L (98-107) Carbon Dioxide Level 25mmol/L (21-32) Anion Gap 13 (6-14) Blood Urea Nitrogen 7mg/dL (7-20) Creatinine 0.8mg/dL (0.6-1.0) Estimated GFR (Cockcroft-Gault) 89.7 BUN/Creatinine Ratio 9 (6-20) Glucose Level 114mg/dL (70-99) Calcium Level 8.4mg/dL (8.5-10.1) Total Bilirubin 0.6mg/dL (0.2-1.0) Aspartate Amino Transf (AST/SGOT) 14U/L (15-37) Alanine Aminotransferase (ALT/SGPT) 15U/L (14-59) Alkaline Phosphatase 94U/L (46-116) Total Protein 6.6g/dL (6.4-8.2) Albumin 2.8g/dL (3.4-5.0) Albumin/Globulin Ratio 0.7 (1.0-1.7) Lactic Acid Level 0.9mmol/L (0.4-2.0) Medications Current Medications Morphine Sulfate 4 mg 4 mg PRN Q15MIN PRN IV/SQ PAIN GREATER THAN 3/10 Last administered on 02/07/17 17:40; Start 02/07/17 at 15:15; Stop 02/07/17 at 21:44 ; Status DC Sodium Chloride (Iv Sodium Chloride 0.9% 1000ml Bag) 1,000 ml @ 1,000 mls/hr Q1H IV Last administered on 02/07/17 15:31; Start 02/07/17 at 15:10; Stop at 16:09; Status DC Ondansetron HCl (Zofran) 4 mg 1X ONCE IV Last administered on 02/07/17 15:33 ; Start 02/07/17 at 15:15; Stop 02/07/17 at 15:16; Status DC Iohexol (Omnipaque 300 Mg/ml) 75 ml 1X ONCE IV Last administered on 02/07/17 16:14; Start 02/07/17 at 15:30; Stop 02/07/17 at 15:31; Status DC Info (Do NOT chart on this entry -- for MONITORING) 1 each PRN DAILY PRN MC SEE COMMENTS; Start 02/07/17 at 15:30; Stop 02/07/17 at 23:28; Status DC Ondansetron HCl (Zofran) 4 mg PRN Q8HRS PRN IV NAUSEA/VOMITING; Start 02/07/17 at 17:00; Stop 02/07/17 at 21:45; Status DC Morphine Sulfate 4 mg 4 mg PRN Q2HR PRN IV PAIN; Start 02/07/17 at 17:00; Stop 02/07/17 at 21:44; Status DC Sodium Chloride (Iv Sodium Chloride 0.9% 1000ml Bag) 1,000 ml @ 125 mls/hr Q8H IV ; Start 02/07/17 at 17:30; Stop 02/07/17 at 21:44; Status DC Piperacillin Sod/ Tazobactam Sod 1 each 1 each PRN DAILY PRN MC SEE COMMENTS; Start 02/07/17 at 17:00; Stop 02/07/17 at 23:46; Status DC Piperacillin Sod/ Tazobactam Sod 3.375 gm/Sodium Chloride 50 ml @ 100 mls/hr 1X ONCE IV Last administered on 02/07/17 17:42; Start 02/07/17 at 17:15; Stop 02/07/17 at 17:44; Status DC Metronidazole (FLAGYL 500Mmg PREMIX) 100 ml @ 100 mls/hr 1X PREOP PRN IV prophylaxis Last administered on 02/07/17 18:33; Start 02/07/17 at 18:00; Stop 02/08/17 at 18:00; Status DC Dextrose 12.5 gm PRN Q15MIN PRN IV SEE COMMENTS Last administered on 02/07/17 18:31; Start 02/07/17 at 18:30; Stop 02/07/17 at 23:28; Status DC Ondansetron HCl (Zofran) 4 mg PRN Q6HRS PRN IV Nausea; Start 02/07/17 at 19:00 ; Stop 02/07/17 at 23:29; Status DC Fentanyl Citrate (Fentanyl 2ml Vial) 25 mcg PRN Q5MIN PRN IV MILD PAIN; Start 02/07/17 at 19:00; Stop 02/07/17 at 23:59; Status DC Fentanyl Citrate (Fentanyl 2ml Vial) 50 mcg PRN Q5MIN PRN IV MODERATE PAIN Last administered on 02/07/17 22:16; Start 02/07/17 at 19:00; Stop 02/07/17 at 23:59; Status DC Morphine Sulfate 1 mg 1 mg PRN Q10MIN PRN IV SEVERE PAIN; Start 02/07/17 at 19: 00; Stop 02/07/17 at 23:59; Status DC Lactated Ringer's (Iv Lactated Ringers) 1,000 ml @ 30 mls/hr Q24H IV ; Start at 18:55; Stop 02/08/17 at 06:54; Status DC Lidocaine HCl 2 ml 1X PRN PRN ID IV START; Start 02/07/17 at 19:00; Stop at 23:59; Status DC Hydromorphone HCl (Dilaudid) 0.5 mg PRN Q10MIN PRN IV SEV PAIN,Second choice; Start 02/07/17 at 19:00; Stop 02/07/17 at 23:59; Status DC Prochlorperazine Edisylate 5 mg 5 mg PACU PRN PRN IV NAUSEA; Start 02/07/17 at 19:00; Stop 02/07/17 at 23:59; Status DC Dextrose/Lactated Ringer's (Iv D5%-Lr) 1,000 ml @ 50 mls/hr Q20H IV Last administered on 02/07/17t 19:49; Start 02/07/17 at 19:00 Dexamethasone Sodium Phosphate (Decadron) 20 mg STK-MED ONCE .ROUTE ; Start at 19:15; Stop 02/07/17 at 19:16; Status DC Ondansetron HCl 4 mg 4 mg STK-MED ONCE .ROUTE ; Start 02/07/17 at 19:15; Stop at 19:16; Status DC Propofol (Diprivan) 20 ml @ As Directed STK-MED ONCE IV ; Start 02/07/17 at 19: 15; Stop 02/07/17 at 19:16; Status DC Lidocaine HCl 100 mg STK-MED ONCE .ROUTE ; Start 02/07/17 at 19:15; Stop at 19:16; Status DC Neostigmine Methylsulfate 5 mg STK-MED ONCE .ROUTE ; Start 02/07/17 at 19:15; Stop 02/07/17 at 19:16; Status DC Fentanyl Citrate (Fentanyl 2ml Vial) 100 mcg STK-MED ONCE .ROUTE ; Start at 19:15; Stop 02/07/17 at 19:16; Status DC Glycopyrrolate (Robinul) 1 mg STK-MED ONCE .ROUTE ; Start 02/07/17 at 19:15; Stop 02/07/17 at 19:16; Status DC Succinylcholine Chloride (Anectine) 200 mg STK-MED ONCE .ROUTE ; Start 02/07/17 at 19:15; Stop 02/07/17 at 19:16; Status DC Rocuronium [place] (Zemuron) 50 mg STK-MED ONCE .ROUTE ; Start 02/07/17 at 19:16 ; Stop 02/07/17 at 19:17; Status DC Sevoflurane (Ultane) 30 ml STK-MED ONCE IH ; Start 02/07/17 at 19:20; Stop 02/07 at 19:21; Status DC Neostigmine Methylsulfate 5 mg STK-MED ONCE .ROUTE ; Start 02/07/17 at 19:20; Stop 02/07/17 at 19:21; Status DC Neostigmine Methylsulfate 5 mg STK-MED ONCE .ROUTE ; Start 02/07/17 at 19:23; Stop 02/07/17 at 19:24; Status DC Morphine Sulfate 10 mg STK-MED ONCE .ROUTE ; Start 02/07/17 at 20:36; Stop 02/07 at 20:37; Status DC Phenylephrine HCl 1 mg STK-MED ONCE IV ; Start 02/07/17 at 20:36; Stop 02/07/17 at 20:37; Status DC Sevoflurane (Ultane) 60 ml STK-MED ONCE IH ; Start 02/07/17 at 21:22; Stop 02/07 at 21:23; Status DC Enoxaparin Sodium (Lovenox 40mg Syringe) 40 mg Q24H SQ Last administered on 08:18; Start 02/08/17 at 09:00 Sodium Chloride 3 ml 3 ml QSHIFT PRN IV AFTER MEDS AND BLOOD DRAWS; Start 02/07 at 21:45 Potassium Chloride/Sodium Chloride (KCl 20 Meq-0.45% Nacl) 1,000 ml @ 100 mls/ hr Q10H IV Last administered on 02/09/17t 10:46; Start 02/08/17 at 00:00 Dextrose 12.5 gm PRN Q15MIN PRN IV SEE COMMENTS; Start 02/07/17 at 21:45 Oxycodone/ Acetaminophen (Percocet 5/325) 1 tab PRN Q4HRS PRN PO MILD PAIN, 1ST CHOICE; Start 02/07/17 at 21:45; Stop 02/08/17 at 10:53; Status DC Oxycodone/ Acetaminophen (Percocet 5/325) 2 tab PRN Q4HRS PRN PO MODERATE PAIN , SEVERE PAIN Last administered on 02/08/17 08:17; Start 02/07/17 at 21:45; Stop 02/08/17 at 10:53; Status DC Hydromorphone HCl (Dilaudid) 1 mg PRN Q3HRS PRN IV PAIN Last administered on 10:14; Start 02/07/17 at 21:45; Stop 02/08/17 at 10:53; Status DC Docusate Sodium (Colace) 100 mg BID PO Last administered on 02/08/17 21:08; Start 02/08/17 at 09:00 Ondansetron HCl (Zofran) 4 mg PRN Q6HRS PRN IV NAUESA, 1ST CHOICE Last administered on 02/09/17 10:42; Start 02/07/17 at 21:45 Nicotine (Nicoderm Cq 21mg) 1 patch DAILY TD Last administered on 02/08/17 08: 17; Start 02/08/17 at 09:00 Insulin Aspart (Novolog) 0-7 UNITS TIDWMEALS SQ ; Start 02/08/17 at 12:00 Dextrose 12.5 gm PRN Q15MIN PRN IV SEE COMMENTS; Start 02/08/17 at 09:30; Status UNV Polyethylene Glycol (miraLAX PACKET) 17 gm DAILY PO Last administered on 10:01; Start 02/08/17 at 10:00 Oxycodone/ Acetaminophen (Percocet 5/325) 1 tab PRN Q3HRS PRN PO MILD PAIN, 1ST CHOICE; Start 02/08/17 at 11:00; Stop 02/08/17 at 11:51; Status DC Oxycodone/ Acetaminophen (Percocet 5/325) 2 tab PRN Q3HRS PRN PO MODERATE PAIN , SEVERE PAIN; Start 02/08/17 at 11:00; Stop 02/08/17 at 11:51; Status DC Hydromorphone HCl (Dilaudid) 0.3 mg PRN Q6HRS PRN IVP PAIN Last administered on 02/09/17 09:17; Start 02/08/17 at 11:00 Amoxicillin/ Clavulanate Potassium (Augmentin 875/ 125mg) 1 tab BID PO Last administered on 02/08/17 21:09; Start 02/08/17 at 21:00; Stop 02/09/17 at 09:11 ; Status DC Oxycodone HCl 10 mg 10 mg PRN Q4HRS PRN PO pain Last administered on 02/08/17 16:42; Start 02/08/17 at 12:00; Stop 02/08/17 at 16:52; Status DC Piperacillin Sod/ Tazobactam Sod/ Sodium Chloride (Zosyn/Iv Sodium Chloride 0.9 % 50ml) 50 ml @ 100 mls/hr Q6HRS IV Last administered on 02/08/17 17:18; Start 02/08/17 at 12:00; Stop 02/08/17 at 18:29; Status DC Oxycodone HCl (Roxicodone) 10 mg PRN Q3HRS PRN PO pain Last administered on 11:37; Start 02/08/17 at 17:00 Oxycodone HCl (Roxicodone) 10 mg 1X ONCE PO Last administered on 02/08/17 17: 44; Start 02/08/17 at 18:00; Stop 02/08/17 at 18:01; Status DC Polyethylene Glycol (miraLAX PACKET) 17 gm DAILY PO ; Start 02/08/17 at 18:00; Stop 02/09/17 at 09:09; Status DC Acetaminophen 650 mg 650 mg PRN Q6HRS PRN PO MILD PAIN / TEMP Last administered on 02/09/17 11:36; Start 02/09/17 at 03:45 Ceftriaxone Sodium 1 gm/ Sodium Chloride 50 ml @ 100 mls/hr DAILY06 IV Last administered on 02/09/17 04:16; Start 02/09/17 at 04:00; Stop 02/09/17 at 09:07 ; Status DC Piperacillin Sod/ Tazobactam Sod/ Sodium Chloride (Zosyn/Iv Sodium Chloride 0.9 % 50ml) 50 ml @ 100 mls/hr Q6HRS IV Last administered on 02/09/17 10:46; Start 02/09/17 at 10:00 Iohexol (Omnipaque 300 Mg/ml) 75 ml 1X ONCE IV Last administered on 02/09/17 09:30; Start 02/09/17 at 09:30; Stop 02/09/17 at 09:31; Status DC Iohexol (Omnipaque 240 Mg/ml) 30 ml 1X ONCE PO ; Start 02/09/17 at 09:30; Stop 02/09/17 at 09:31; Status DC Info (Do NOT chart on this entry -- for MONITORING) 1 each PRN DAILY PRN MC SEE COMMENTS; Start 02/09/17 at 09:15; Stop 02/11/17 at 09:14 Lorazepam (Ativan) 1 mg PRN Q6HRS PRN PO ANXIETY / AGITATION; Start 02/09/17 at 10:30; Status Cancel Lorazepam (Ativan) 1 mg PRN Q6HRS PRN IV ANXIETY / AGITATION Last administered on 02/09/17 10:48; Start 02/09/17 at 10:30 Hydromorphone HCl (Dilaudid) 1 mg PRN Q2HR PRN IV PAIN SEVERE Last administered on 02/09/17 11:51; Start 02/09/17 at 11:45 Hydromorphone HCl (Dilaudid) 2 mg PRN Q2HR PRN IV PAIN SEVERE; Start 02/09/17 at 12:00 Vitals/I & O Vital Sign - Last 24 Hours 02/08/17 02/08/17 02/08/17 02/08/17 12:26 15:00 19:00 19:35 Temp 98.8 99.8 98.8 99.8 Pulse 115 122 Resp 16 18 18 B/P 100/52 102/62 Pulse Ox 95 94 O2 Delivery Room Air Room Air Room Air Room Air 02/08/17 02/08/17 02/08/17 02/08/17 19:42 22:07 22:47 23:11 Temp 98.4 98.4 Pulse 87 Resp 18 B/P 132/80 Pulse Ox 95 O2 Delivery Room Air Room Air Room Air Room Air 02/09/17 02/09/17 02/09/17 02/09/17 02:03 03:00 04:03 05:50 Temp 101.8 101.8 Pulse 133 Resp 18 B/P 104/68 Pulse Ox 92 O2 Delivery Room Air Room Air Room Air Room Air 02/09/17 02/09/17 02/09/17 02/09/17 05:50 07:00 07:00 08:00 Temp 99.6 98.6 99.6 98.6 Pulse 125 Resp 22 B/P 124/78 Pulse Ox 92 O2 Delivery Room Air Room Air Room Air 02/09/17 02/09/17 02/09/17 02/09/17 08:34 09:17 10:00 10:58 Temp 100.9 100.9 Pulse 131 Resp 20 B/P 126/77 Pulse Ox 89 O2 Delivery Room Air Room Air Room Air Room Air 02/09/17 02/09/17 11:37 11:51 O2 Delivery Nasal Cannula Nasal Cannula O2 Flow Rate 1.0 2.0 Intake and Output 02/08/17 02/08/17 02/09/17 15:00 23:00 07:00 Intake Total 300 ml Balance 300 ml HOLLY DANIEL III DO Feb 09, 2017 12:22
[2017-02-09] MEDS: FLUCONAZOLE 400MG/200ML PREMIX 200 ML IV SCH (13:15)
[2017-02-09] MEDS: HYDROMORPHONE STANDARD PCA 30 ML IV PRN (13:28)
--- NOTE | 2017-02-09 14:32 | PATHOLOGY ---
PATHOLOGY REPORT * * * * * * * * FINAL DIAGNOSIS: Appendix, laparoscopic appendectomy: - Acute appendicitis with focal perforation. (JPM:csd; d/t: 02/09/2017) REPORT ELECTRONICALLY SIGNED BY: Ramakrishna Beavers M.D. DATE/TIME: 02/09/2017 14:31 * * * * * * * * GROSS PATHOLOGY: Received in formalin labeled "riana Mccarthy," is an appendix measuring 4.1 cm in length and 0.7 cm in diameter with a slight amount of attached mesoappendix. The serosal surface is dusky-garcia and shaggy in appearance displaying a perforation 1.3 cm distal to the proximal margin. At the distal tip, there is a second possible perforation. Sectioning reveals a patent to dilated lumen filled with fecal material. The specimen is submitted representatively as follows: A1 proximal margin and bisected distal tip A2 additional airline security representative sections of appendix, to include section through the perforation. (KAH; 02/08/2017) INITIAL CPT CODE(S): A; 79122 Professional services performed [place] [address] Technical services performed by [facility] at [address] [place] [address] [address] [address]. SPECIMEN(S) RECEIVED: A.Appendix CLINICAL HISTORY: Acute appendicitis PATIENT: KERMIT CHATTERJEE /AGE: 302/15/1995 (Age: 21) PATIENT #: [id number] ALT CASE #: SPECIMEN COLLECTION DATE: 02/07/2017 SPECIMEN RECEIVED DATE: 02/08/2017 [facility] [address] [place] [address] - PHONE: [phone] * * * END OF REPORT * * *
[2017-02-09 15:52] VITALS: BP 119/60
--- NOTE | 2017-02-09 17:52 | PDOC2 ---
CONSULT Date of Consult Date of Consult DATE: 02/09/17 TIME: 17:45 Reason for Consult Reason for Consult: abd pain Referring Physician Referring Physician: Dr. Norton Identification/Chief Complaint Chief Complaint abd pain Source Source: Chart review, Patient History of Present Illness Reason for Visit: 21 y/o G0 presented to ED with c/o abd pain 2 days ago. SHe was dx with appendicitis and underwent appendectomy. She has since developed fever, chills and continuance of abd pain in RLQ. Past Medical History Cardiovascular: No pertinent hx Pulmonary: No pertinent hx GI: No pertinent hx Hepatobiliary: No pertinent hx Renal/: No pertinent hx Endocrine: Diabetes, Other (since age [age]) Past Surgical History Past Surgical History: Appendectomy Family History Family History: No Significant Social History <1 pack per day ALCOHOL: occassional Current Problem List Problem List Problems Medical Problems: (1) Acute appendicitis Status: Acute (2) Appendicitis with perforation Status: Acute (3) Diabetes Status: Acute Current Medications Current Medications Current Medications Morphine Sulfate 4 mg 4 mg PRN Q15MIN PRN IV/SQ PAIN GREATER THAN 3/10 Last administered on 02/07/17 17:40; Start 02/07/17 at 15:15; Stop 02/07/17 at 21:44 ; Status DC Sodium Chloride (Iv Sodium Chloride 0.9% 1000ml Bag) 1,000 ml @ 1,000 mls/hr Q1H IV Last administered on 02/07/17 15:31; Start 02/07/17 at 15:10; Stop at 16:09; Status DC Ondansetron HCl (Zofran) 4 mg 1X ONCE IV Last administered on 02/07/17 15:33 ; Start 02/07/17 at 15:15; Stop 02/07/17 at 15:16; Status DC Iohexol (Omnipaque 300 Mg/ml) 75 ml 1X ONCE IV Last administered on 02/07/17 16:14; Start 02/07/17 at 15:30; Stop 02/07/17 at 15:31; Status DC Info (Do NOT chart on this entry -- for MONITORING) 1 each PRN DAILY PRN MC SEE COMMENTS; Start 02/07/17 at 15:30; Stop 02/07/17 at 23:28; Status DC Ondansetron HCl (Zofran) 4 mg PRN Q8HRS PRN IV NAUSEA/VOMITING; Start 02/07/17 at 17:00; Stop 02/07/17 at 21:45; Status DC Morphine Sulfate 4 mg 4 mg PRN Q2HR PRN IV PAIN; Start 02/07/17 at 17:00; Stop 02/07/17 at 21:44; Status DC Sodium Chloride (Iv Sodium Chloride 0.9% 1000ml Bag) 1,000 ml @ 125 mls/hr Q8H IV ; Start 02/07/17 at 17:30; Stop 02/07/17 at 21:44; Status DC Piperacillin Sod/ Tazobactam Sod 1 each 1 each PRN DAILY PRN MC SEE COMMENTS; Start 02/07/17 at 17:00; Stop 02/07/17 at 23:46; Status DC Piperacillin Sod/ Tazobactam Sod 3.375 gm/Sodium Chloride 50 ml @ 100 mls/hr 1X ONCE IV Last administered on 02/07/17 17:42; Start 02/07/17 at 17:15; Stop 02/07/17 at 17:44; Status DC Metronidazole (FLAGYL 500Mmg PREMIX) 100 ml @ 100 mls/hr 1X PREOP PRN IV prophylaxis Last administered on 02/07/17 18:33; Start 02/07/17 at 18:00; Stop 02/08/17 at 18:00; Status DC Dextrose 12.5 gm PRN Q15MIN PRN IV SEE COMMENTS Last administered on 02/07/17 18:31; Start 02/07/17 at 18:30; Stop 02/07/17 at 23:28; Status DC Ondansetron HCl (Zofran) 4 mg PRN Q6HRS PRN IV Nausea; Start 02/07/17 at 19:00 ; Stop 02/07/17 at 23:29; Status DC Fentanyl Citrate (Fentanyl 2ml Vial) 25 mcg PRN Q5MIN PRN IV MILD PAIN; Start 02/07/17 at 19:00; Stop 02/07/17 at 23:59; Status DC Fentanyl Citrate (Fentanyl 2ml Vial) 50 mcg PRN Q5MIN PRN IV MODERATE PAIN Last administered on 02/07/17 22:16; Start 02/07/17 at 19:00; Stop 02/07/17 at 23:59; Status DC Morphine Sulfate 1 mg 1 mg PRN Q10MIN PRN IV SEVERE PAIN; Start 02/07/17 at 19: 00; Stop 02/07/17 at 23:59; Status DC Lactated Ringer's (Iv Lactated Ringers) 1,000 ml @ 30 mls/hr Q24H IV ; Start at 18:55; Stop 02/08/17 at 06:54; Status DC Lidocaine HCl 2 ml 1X PRN PRN ID IV START; Start 02/07/17 at 19:00; Stop at 23:59; Status DC Hydromorphone HCl (Dilaudid) 0.5 mg PRN Q10MIN PRN IV SEV PAIN,Second choice; Start 02/07/17 at 19:00; Stop 02/07/17 at 23:59; Status DC Prochlorperazine Edisylate 5 mg 5 mg PACU PRN PRN IV NAUSEA; Start 02/07/17 at 19:00; Stop 02/07/17 at 23:59; Status DC Dextrose/Lactated Ringer's (Iv D5%-Lr) 1,000 ml @ 50 mls/hr Q20H IV Last administered on 02/07/17t 19:49; Start 02/07/17 at 19:00 Dexamethasone Sodium Phosphate (Decadron) 20 mg STK-MED ONCE .ROUTE ; Start at 19:15; Stop 02/07/17 at 19:16; Status DC Ondansetron HCl 4 mg 4 mg STK-MED ONCE .ROUTE ; Start 02/07/17 at 19:15; Stop at 19:16; Status DC Propofol (Diprivan) 20 ml @ As Directed STK-MED ONCE IV ; Start 02/07/17 at 19: 15; Stop 02/07/17 at 19:16; Status DC Lidocaine HCl 100 mg STK-MED ONCE .ROUTE ; Start 02/07/17 at 19:15; Stop at 19:16; Status DC Neostigmine Methylsulfate 5 mg STK-MED ONCE .ROUTE ; Start 02/07/17 at 19:15; Stop 02/07/17 at 19:16; Status DC Fentanyl Citrate (Fentanyl 2ml Vial) 100 mcg STK-MED ONCE .ROUTE ; Start at 19:15; Stop 02/07/17 at 19:16; Status DC Glycopyrrolate (Robinul) 1 mg STK-MED ONCE .ROUTE ; Start 02/07/17 at 19:15; Stop 02/07/17 at 19:16; Status DC Succinylcholine Chloride (Anectine) 200 mg STK-MED ONCE .ROUTE ; Start 02/07/17 at 19:15; Stop 02/07/17 at 19:16; Status DC Rocuronium [place] (Zemuron) 50 mg STK-MED ONCE .ROUTE ; Start 02/07/17 at 19:16 ; Stop 02/07/17 at 19:17; Status DC Sevoflurane (Ultane) 30 ml STK-MED ONCE IH ; Start 02/07/17 at 19:20; Stop 02/07 at 19:21; Status DC Neostigmine Methylsulfate 5 mg STK-MED ONCE .ROUTE ; Start 02/07/17 at 19:20; Stop 02/07/17 at 19:21; Status DC Neostigmine Methylsulfate 5 mg STK-MED ONCE .ROUTE ; Start 02/07/17 at 19:23; Stop 02/07/17 at 19:24; Status DC Morphine Sulfate 10 mg STK-MED ONCE .ROUTE ; Start 02/07/17 at 20:36; Stop 02/07 at 20:37; Status DC Phenylephrine HCl 1 mg STK-MED ONCE IV ; Start 02/07/17 at 20:36; Stop 02/07/17 at 20:37; Status DC Sevoflurane (Ultane) 60 ml STK-MED ONCE IH ; Start 02/07/17 at 21:22; Stop 02/07 at 21:23; Status DC Enoxaparin Sodium (Lovenox 40mg Syringe) 40 mg Q24H SQ Last administered on 08:18; Start 02/08/17 at 09:00 Sodium Chloride 3 ml 3 ml QSHIFT PRN IV AFTER MEDS AND BLOOD DRAWS; Start 02/07 at 21:45 Potassium Chloride/Sodium Chloride (KCl 20 Meq-0.45% Nacl) 1,000 ml @ 100 mls/ hr Q10H IV Last administered on 02/09/17 10:46; Start 02/08/17 at 00:00 Dextrose 12.5 gm PRN Q15MIN PRN IV SEE COMMENTS; Start 02/07/17 at 21:45 Oxycodone/ Acetaminophen (Percocet 5/325) 1 tab PRN Q4HRS PRN PO MILD PAIN, 1ST CHOICE; Start 02/07/17 at 21:45; Stop 02/08/17 at 10:53; Status DC Oxycodone/ Acetaminophen (Percocet 5/325) 2 tab PRN Q4HRS PRN PO MODERATE PAIN , SEVERE PAIN Last administered on 02/08/17 08:17; Start 02/07/17 at 21:45; Stop 02/08/17 at 10:53; Status DC Hydromorphone HCl (Dilaudid) 1 mg PRN Q3HRS PRN IV PAIN Last administered on 10:14; Start 02/07/17 at 21:45; Stop 02/08/17 at 10:53; Status DC Docusate Sodium (Colace) 100 mg BID PO Last administered on 02/08/17 21:08; Start 02/08/17 at 09:00 Ondansetron HCl (Zofran) 4 mg PRN Q6HRS PRN IV NAUESA, 1ST CHOICE Last administered on 02/09/17 10:42; Start 02/07/17 at 21:45 Nicotine (Nicoderm Cq 21mg) 1 patch DAILY TD Last administered on 02/08/17 08: 17; Start 02/08/17 at 09:00 Insulin Aspart (Novolog) 0-7 UNITS TIDWMEALS SQ ; Start 02/08/17 at 12:00 Dextrose 12.5 gm PRN Q15MIN PRN IV SEE COMMENTS; Start 02/08/17 at 09:30; Status UNV Polyethylene Glycol (miraLAX PACKET) 17 gm DAILY PO Last administered on 10:01; Start 02/08/17 at 10:00 Oxycodone/ Acetaminophen (Percocet 5/325) 1 tab PRN Q3HRS PRN PO MILD PAIN, 1ST CHOICE; Start 02/08/17 at 11:00; Stop 02/08/17 at 11:51; Status DC Oxycodone/ Acetaminophen (Percocet 5/325) 2 tab PRN Q3HRS PRN PO MODERATE PAIN , SEVERE PAIN; Start 02/08/17 at 11:00; Stop 02/08/17 at 11:51; Status DC Hydromorphone HCl (Dilaudid) 0.3 mg PRN Q6HRS PRN IVP PAIN Last administered on 02/09/17 09:17; Start 02/08/17 at 11:00 Amoxicillin/ Clavulanate Potassium (Augmentin 875/ 125mg) 1 tab BID PO Last administered on 02/08/17 21:09; Start 02/08/17 at 21:00; Stop 02/09/17 at 09:11 ; Status DC Oxycodone HCl 10 mg 10 mg PRN Q4HRS PRN PO pain Last administered on 02/08/17 16:42; Start 02/08/17 at 12:00; Stop 02/08/17 at 16:52; Status DC Piperacillin Sod/ Tazobactam Sod/ Sodium Chloride (Zosyn/Iv Sodium Chloride 0.9 % 50ml) 50 ml @ 100 mls/hr Q6HRS IV Last administered on 02/08/17 17:18; Start 02/08/17 at 12:00; Stop 02/08/17 at 18:29; Status DC Oxycodone HCl (Roxicodone) 10 mg PRN Q3HRS PRN PO pain Last administered on 11:37; Start 02/08/17 at 17:00 Oxycodone HCl (Roxicodone) 10 mg 1X ONCE PO Last administered on 02/08/17 17: 44; Start 02/08/17 at 18:00; Stop 02/08/17 at 18:01; Status DC Polyethylene Glycol (miraLAX PACKET) 17 gm DAILY PO ; Start 02/08/17 at 18:00; Stop 02/09/17 at 09:09; Status DC Acetaminophen 650 mg 650 mg PRN Q6HRS PRN PO MILD PAIN / TEMP Last administered on 02/09/17 11:36; Start 02/09/17 at 03:45 Ceftriaxone Sodium 1 gm/ Sodium Chloride 50 ml @ 100 mls/hr DAILY06 IV Last administered on 02/09/17 04:16; Start 02/09/17 at 04:00; Stop 02/09/17 at 09:07 ; Status DC Piperacillin Sod/ Tazobactam Sod/ Sodium Chloride (Zosyn/Iv Sodium Chloride 0.9 % 50ml) 50 ml @ 100 mls/hr Q6HRS IV Last administered on 02/09/17 10:46; Start 02/09/17 at 10:00 Iohexol (Omnipaque 300 Mg/ml) 75 ml 1X ONCE IV Last administered on 02/09/17 09:30; Start 02/09/17 at 09:30; Stop 02/09/17 at 09:31; Status DC Iohexol (Omnipaque 240 Mg/ml) 30 ml 1X ONCE PO ; Start 02/09/17 at 09:30; Stop 02/09/17 at 09:31; Status DC Info (Do NOT chart on this entry -- for MONITORING) 1 each PRN DAILY PRN MC SEE COMMENTS; Start 02/09/17 at 09:15; Stop 02/11/17 at 09:14 Lorazepam (Ativan) 1 mg PRN Q6HRS PRN PO ANXIETY / AGITATION; Start 02/09/17 at 10:30; Status Cancel Lorazepam (Ativan) 1 mg PRN Q6HRS PRN IV ANXIETY / AGITATION Last administered on 02/09/17 10:48; Start 02/09/17 at 10:30 Hydromorphone HCl (Dilaudid) 1 mg PRN Q2HR PRN IV PAIN SEVERE Last administered on 02/09/17 11:51; Start 02/09/17 at 11:45 Hydromorphone HCl (Dilaudid) 2 mg PRN Q2HR PRN IV PAIN SEVERE; Start 02/09/17 at 12:00 Potassium Chloride 40 meq 40 meq 1X ONCE PO Last administered on 02/09/17 13: 15; Start 02/09/17 at 12:00; Stop 02/09/17 at 12:01; Status DC Linezolid 300 ml @ 300 mls/hr Q12H IV Last administered on 02/09/17 13:14; Start 02/09/17 at 12:00 Fluconazole/ Sodium Chloride 200 ml @ 100 mls/hr Q24H IV Last administered on 02/09/17 13:15; Start 02/09/17 at 12:15 Hydromorphone HCl (Dilaudid Standard [employer]) 30 ml @ 0 mls/hr CONT PRN PRN IV PROTOCOL Last administered on 02/09/17t 13:28; Start 02/09/17 at 12:45 Ketorolac Tromethamine (Toradol) 15 mg PRN Q6HRS PRN IV PAIN; Start 02/09/17 at 12:45; Stop 02/14/17 at 12:44 Allergies Allergies: Coded Allergies: No Known Drug Allergies (Unverified , 02/07/17) ROS General: YES: Chills, Fatigue, Malaise, No: Appetite, Night Sweats, Other PSYCHOLOGICAL ROS: YES: Anxiety, No: Behavioral Disorder, Concentration difficultie, Decreased libido, Depression, Disorientation, Hallucinations, Hostility, Irritablity, Memory difficulties, Mood Swings, Obsessive thoughts, Other, Physical abuse, Sexual abuse, Sleep disturbances, Suicidal ideation Eyes: No Blurry vision, No Decreased vision, No Double vision, No Dry eyes, No Excessive tearing, No Eye Pain, No Itchy Eyes, No Loss of vision, No Other, No Photophobia, No Scotomata, No Uses contacts, No Uses glasses HEENT: No: Epistaxis, Heacaches, Hearing change, Nasal congestion, Nasal discharge, Oral lesions, Other, Sinus pain, Sneezing, Snoring, Sore Throat, Tinnitus, Vertigo, Visual Changes, Vocal changes ALLERGY AND IMMUNOLOGY: No: Hives, Insect Bite Sensitivity, Itchy/Watery Eyes, Nasal Congestion, Other, Post Nasal Drip, Seasonal Allergies Hematological and Lymphatic: No: Bleeding Problems, Blood Clots, Blood Transfusions, Brusing, Night Sweats, Other, Pallor, Swollen Lymph Nodes ENDOCRINE: No: Breast Changes, Galactorrhea, Hair Pattern Changes, Hot Flashes , Malaise/lethargy, Mood Swings, Other, Palpitations, Polydipsia/polyuria, Skin Changes, Temperature Intolerance, Unexpected Weight Changes Breast: No New/Changing Breast Lumps, No Nipple changes, No Nipple discharge, No Other Respiratory: No: Cough, Hemoptysis, Orthopnea, Other, Pleuritic Pain, SOB with excertion, Shortness of breath, Sputum Changes, Stridor, Tachypnea, Wheezing Cardiovascular: No Chest Pain, No Edema, No Lt Headedness, No Orthopnea, No Other, No Palpitations, No Paroxysmal Noc. Dyspnea Gastrointestinal: Yes Abdominal Pain Genitourinary: No , No , No , No , No , No , No , No Discharge, No Dysuria, No Flank Pain, No Frequency, No Hematuria, No Incontinence, No Other, No Pain, No Retention, No Urgency Musculoskeletal: No Gait Disturbance, No Joint Pain, No Joint Stiffness, No Joint Swelling, No Muscle Pain, No Muscular Weakness, No Other, No Pain In:, No Swelling In: Neurological: No Behavorial Changes, No Bowel/Bladder ControlChng, No Confusion , No Dizziness, No Gait Disturbance, No Headaches, No Impaired Coord/balance, No Memory Loss, No Numbness/Tingling, No Other, No Seizures, No Speech Problems , No Tremors, No Visual Changes, No Weakness Skin: No Acne, No Dry Skin, No Eczema, No Hair Changes, No Lumps, No Mole Changes, No Mottling, No Nail Changes, No Other, No Pruritus, No Rash, No Skin Lesion Changes Physical Exam General: Alert, Oriented X3, Cooperative HEENT: Atraumatic Lungs: Clear to auscultation Heart: Regular rate Abdomen: Normal bowel sounds, No masses, Other (RLQ tenderness> general abd tenderness. No rebound tenderness.) Vitals VITALS Vital Signs Date Time Temp Pulse Resp B/P Pulse Ox O2 Delivery O2 Flow Rate FiO2 02/09/17 15:52 100.1 123 18 119/60 94 Nasal Cannula 1.0 100.1 Labs Labs Laboratory Tests Test 02/07/17 18:24 02/07/17 18:56 02/07/17 21:40 02/08/17 02:10 Glucose (Fingerstick) 50mg/dL (70-99) 121mg/dL (70-99) 109mg/dL (70-99) 100mg/dL (70-99) Test 02/08/17 06:34 02/08/17 08:13 02/08/17 11:14 02/09/17 05:21 White Blood Count 22.6x10^3/uL (4.0-11.0) 15.9x10^3/uL (4.0-11.0) Red Blood Count 4.21x10^6/uL (3.50-5.40) 4.15x10^6/uL (3.50-5.40) Hemoglobin 13.2g/dL (12.0-15.5) 13.0g/dL (12.0-15.5) Hematocrit 39.5% (36.0-47.0) 38.5% (36.0-47.0) Mean Corpuscular Volume 94fL (79-100) 93fL (79-100) Mean Corpuscular Hemoglobin 31pg (25-35) 31pg (25-35) Mean Corpuscular Hemoglobin Concent 33g/dL (31-37) 34g/dL (31-37) Red Cell Distribution Width 12.2% (11.5-14.5) 12.1% (11.5-14.5) Platelet Count 324x10^3/uL (140-400) 350x10^3/uL (140-400) Neutrophils (%) (Auto) 90% (31-73) 76% (31-73) Lymphocytes (%) (Auto) 6% (24-48) 16% (24-48) Monocytes (%) (Auto) 4% (0-9) 7% (0-9) Eosinophils (%) (Auto) 0% (0-3) 1% (0-3) Basophils (%) (Auto) 0% (0-3) 0% (0-3) Neutrophils # (Auto) 20.3x10^3uL (1.8-7.7) 12.1x10^3uL (1.8-7.7) Lymphocytes # (Auto) 1.2x10^3/uL (1.0-4.8) 2.6x10^3/uL (1.0-4.8) Monocytes # (Auto) 1.0x10^3/uL (0.0-1.1) 1.1x10^3/uL (0.0-1.1) Eosinophils # (Auto) 0.0x10^3/uL (0.0-0.7) 0.1x10^3/uL (0.0-0.7) Basophils # (Auto) 0.0x10^3/uL (0.0-0.2) 0.1x10^3/uL (0.0-0.2) Glucose (Fingerstick) 176mg/dL (70-99) 206mg/dL (70-99) Sodium Level 140mmol/L (136-145) Potassium Level 3.2mmol/L (3.5-5.1) Chloride Level 102mmol/L (98-107) Carbon Dioxide Level 25mmol/L (21-32) Anion Gap 13 (6-14) Blood Urea Nitrogen 7mg/dL (7-20) Creatinine 0.8mg/dL (0.6-1.0) Estimated GFR (Cockcroft-Gault) 89.7 BUN/Creatinine Ratio 9 (6-20) Glucose Level 114mg/dL (70-99) Calcium Level 8.4mg/dL (8.5-10.1) Total Bilirubin 0.6mg/dL (0.2-1.0) Aspartate Amino Transf (AST/SGOT) 14U/L (15-37) Alanine Aminotransferase (ALT/SGPT) 15U/L (14-59) Alkaline Phosphatase 94U/L (46-116) Total Protein 6.6g/dL (6.4-8.2) Albumin 2.8g/dL (3.4-5.0) Albumin/Globulin Ratio 0.7 (1.0-1.7) Test 02/09/17 05:38 Lactic Acid Level 0.9mmol/L (0.4-2.0) Laboratory Tests Test 02/09/17 05:21 02/09/17 05:38 White Blood Count 15.9x10^3/uL (4.0-11.0) Red Blood Count 4.15x10^6/uL (3.50-5.40) Hemoglobin 13.0g/dL (12.0-15.5) Hematocrit 38.5% (36.0-47.0) Mean Corpuscular Volume 93fL (79-100) Mean Corpuscular Hemoglobin 31pg (25-35) Mean Corpuscular Hemoglobin Concent 34g/dL (31-37) Red Cell Distribution Width 12.1% (11.5-14.5) Platelet Count 350x10^3/uL (140-400) Neutrophils (%) (Auto) 76% (31-73) Lymphocytes (%) (Auto) 16% (24-48) Monocytes (%) (Auto) 7% (0-9) Eosinophils (%) (Auto) 1% (0-3) Basophils (%) (Auto) 0% (0-3) Neutrophils # (Auto) 12.1x10^3uL (1.8-7.7) Lymphocytes # (Auto) 2.6x10^3/uL (1.0-4.8) Monocytes # (Auto) 1.1x10^3/uL (0.0-1.1) Eosinophils # (Auto) 0.1x10^3/uL (0.0-0.7) Basophils # (Auto) 0.1x10^3/uL (0.0-0.2) Sodium Level 140mmol/L (136-145) Potassium Level 3.2mmol/L (3.5-5.1) Chloride Level 102mmol/L (98-107) Carbon Dioxide Level 25mmol/L (21-32) Anion Gap 13 (6-14) Blood Urea Nitrogen 7mg/dL (7-20) Creatinine 0.8mg/dL (0.6-1.0) Estimated GFR (Cockcroft-Gault) 89.7 BUN/Creatinine Ratio 9 (6-20) Glucose Level 114mg/dL (70-99) Calcium Level 8.4mg/dL (8.5-10.1) Total Bilirubin 0.6mg/dL (0.2-1.0) Aspartate Amino Transf (AST/SGOT) 14U/L (15-37) Alanine Aminotransferase (ALT/SGPT) 15U/L (14-59) Alkaline Phosphatase 94U/L (46-116) Total Protein 6.6g/dL (6.4-8.2) Albumin 2.8g/dL (3.4-5.0) Albumin/Globulin Ratio 0.7 (1.0-1.7) Lactic Acid Level 0.9mmol/L (0.4-2.0) Assessment/Plan Assessment/Plan A: POD#2 s/p Appendectomy Fever with peritoneal fluid ROV cyst of 4 cm size. DM TYpe 1 P: Counseled on ovarian cysts. Recommend IV abx and pain management. Repeat pelvic sono in 6-8 wks for reevaluation of ovarian cyst. If General surgery proceeds with surgery I would be happy to remove the cyst at that time, otherwise I will see her in clinic for f/u. Thank you for consult. JANA YANCEY Jr, MD Feb 09, 2017 17:51
[2017-02-09 19:00] VITALS: BP 126/87
[2017-02-09 23:00] VITALS: BP 124/69
--- NOTE | 2017-02-09 23:55 | CONS ---
DATE OF CONSULTATION: 02/09/2017 PATIENT'S ROOM: 426. REQUESTING PHYSICIAN: Dr. Girard. REASON FOR CONSULTATION: Fever. HISTORY OF PRESENT ILLNESS: The patient is a pleasant 21-year-old with a history of diabetes since age 5. She was having insulin pump in place and does have a history of multidrug abuse. In addition, she has a history of MRSA infection to her left shoulder. She came to [facility] secondary to developing right lower quadrant abdominal pain. She had taken some ibuprofen; however, did not improve. She underwent a CT scan of the abdomen and pelvis which showed she had an acute appendicitis. White blood cell count on arrival was 22.2 with 7% bands. She was taken to the operating room by Dr. Girard on the and underwent a laparoscopic appendectomy. She did receive a dose of dexamethasone on the day of surgery. She initially had received Zosyn, but was changed to Augmentin yesterday, but began to feel ill. Early this morning she developed a temperature of 101.8. She vomited. She then received a dose of Rocephin. She was then switched back to Zosyn and I was consulted. She has since undergone a repeat CT scan, which showed some moderate pericecal inflammation with small amount of free fluid. Post appendectomy she had a deep pelvic fluid collection that increased in size, infection or early abscess cannot be excluded. She had a right persistent right ovarian cyst, and moderate atelectasis or pneumonitis has developed posterior area in the lung bases. She has mild headache. No rashes. PAST MEDICAL HISTORY: Positive for type 1 diabetes, history of multidrug abuse as well as history of MRSA infection as well as a history of obesity. PAST SURGICAL HISTORY: Positive history for tonsillectomy, ear tubes and the above-mentioned surgery. REVIEW OF SYSTEMS: Otherwise negative except for mentioned above. ALLERGIES: No known drug allergies. SOCIAL HISTORY: She is a smoker, uses meth, cocaine, cannabis occasionally. Lives with a girlfriend. FAMILY HISTORY: Noncontributory. CURRENT MEDICATIONS: Include Zosyn. She received a dose of metronidazole, Colace, Dilaudid, insulin NovoLog. Other meds are available and have been reviewed in the chart. PHYSICAL EXAMINATION: VITAL SIGNS: T-max 101.8, most recently 100.9; pulse 131, respirations 20, blood pressure 126/77. She is on 2 liters nasal cannula. She is lying in bed. CONSTITUTIONAL: She is in no acute distress. She appears tired. HEENT: Pupils equal, reactive. Oral cavity, pharynx is dry. NECK: Supple, no JVD. LUNGS: Decreased in the bases, no wheeze. HEART: S1, S2. ABDOMEN: Distended. She has positive bowel sounds. Incision sites are clean. EXTREMITIES: No clubbing, cyanosis or gross edema. SKIN: Warm to touch without signs of rash. She has multiple tattoos. NEUROLOGIC: She is nonfocal, moves all extremities. PSYCHIATRIC: Intact. Affect is somewhat flat. LABORATORY DATA: White count 15.9, hemoglobin 13, platelets of 350, neutrophils 76, lymphs 16, glucose 114, AST 14, ALT 15, creatinine 0.8. Urinalysis from the was negative. CAT scan reviewed in the history of present illness. IMPRESSION: 1. History of Methicillin-resistant Staphylococcus aureus. 2. Appendix perforation, status post laparoscopic appendectomy on the , now with questionable fluid collection on the CT scan. 3. Leukocytosis, improved. 4. Questionable pneumonitis. 5. Fever, T-max 101.8. 6. Abdominal pain. 7. Diabetes. IMPRESSION: Await surgical evaluation of the CT scan. We will continue Zosyn for now. We will add Zyvox. Given her age and substance abuse it is unlikely giving vancomycin will achieve adequate levels ____ level. Additionally, we will add fluconazole. Follow up on labs and cultures. This was discussed with the family. Thank you for allowing me to participate in the patient's care. If you have any questions, please do not hesitate to contact me. KINJAL REAL MD DR: MEGA/peter JOB#: [id number] / [id number]
[2017-02-10] MEDS: POTASSIUM CL 20MEQ-0.45% NACL 1,000 ML IV SCH ×3 (01:02→21:20)
[2017-02-10] MEDS: LORAZEPAM 2 MG/ML VIAL IV PRN ×2 (01:03→09:14)
[2017-02-10] MEDS: ACETAMINOPHEN 325 MG TABLET. PO PRN ×2 (02:53→16:44)
[2017-02-10 03:00] VITALS: BP 133/67
[2017-02-10 05:37] LABS: BASO # 0.1 x10^3/uL (0.0-0.2); BASO % 0 % (0-3); EOS % 1 % (0-3); HEMOGLOBIN 12.9 g/dL (12.0-15.5); LYMPH # 2.1 x10^3/uL (1.0-4.8); LYMPH % 14 % (24-48); MEAN CORPUSCULAR HEMOGLOBIN 31 pg (25-35); MEAN CORPUSCULAR HGB CONC 34 g/dL (31-37); MEAN CORPUSCULAR VOLUME 93 fL (79-100); MONO % 8 % (0-9); NEUT % 77 % (31-73); PLATELET COUNT 333 x10^3/uL (140-400); RED BLOOD COUNT 4.11 x10^6/uL (3.50-5.40); RED CELL DISTRIBUTION WIDTH 11.9 % (11.5-14.5); WHITE BLOOD COUNT 15.1 x10^3/uL (4.0-11.0)
[2017-02-10 05:45] LABS: CALCIUM 8.7 mg/dL (8.5-10.1); CREATININE 0.6 mg/dL (0.6-1.0); POTASSIUM 4.2 mmol/L (3.5-5.1)
[2017-02-10] MEDS: PIPERACILLIN/TAZOBACTAM 3.375 GM in IV NORMAL SALINE 50ML 50 ML IV SCH ×3 (06:01→17:53)
[2017-02-10 07:00] VITALS: BP 125/76
[2017-02-10] MEDS: IV DEXTROSE 5%-LACT RINGERS 1,000 ML IV SCH (07:00)
[2017-02-10] MEDS: INSULIN ASPART 300 UNITS/3 ML INSULN.PEN SQ SCH ×3 (08:00→16:43)
[2017-02-10] MEDS: DOCUSATE SODIUM 100 MG CAPSULE PO SCH ×2 (08:46→21:19)
[2017-02-10] MEDS: POLYETHYLENE GLYCOL 3350 17 GM PACKET. PO SCH (08:46)
[2017-02-10] MEDS: NICOTINE 21MG PATCH. TD SCH (08:46)
[2017-02-10] MEDS: ENOXAPARIN 40 MG/0.4 ML DISP.SYRIN. SQ SCH (08:46)
--- NOTE | 2017-02-10 10:08 | PDOC ---
JEOVANY ZHANG VISITOR SERVICES REPRESENTATIVE 02/10/17 1008: SURGICAL PROGRESS NOTE Subjective pain is better controlled up to bathroom, not ambulating or out of bed much Vital Signs Vital Signs Date Time Temp Pulse Resp B/P Pulse Ox O2 Delivery O2 Flow Rate FiO2 02/10/17 08:00 Room Air 1.0 02/10/17 07:00 97.3 111 20 125/76 97 97.3 I&O Intake and Output 02/10/17 07:00 Intake Total 700 ml Balance 700 ml Intake Oral 700 ml # Voids 9 General: Alert, Oriented X3, Cooperative, No acute distress Abdomen: Soft, Other (distended, lap dressings dry) Labs Laboratory Tests Test 02/08/17 11:14 02/09/17 05:21 02/09/17 05:38 02/10/17 05:10 Glucose (Fingerstick) 206mg/dL (70-99) White Blood Count 15.9x10^3/uL (4.0-11.0) 15.1x10^3/uL (4.0-11.0) Red Blood Count 4.15x10^6/uL (3.50-5.40) 4.11x10^6/uL (3.50-5.40) Hemoglobin 13.0g/dL (12.0-15.5) 12.9g/dL (12.0-15.5) Hematocrit 38.5% (36.0-47.0) 38.0% (36.0-47.0) Mean Corpuscular Volume 93fL (79-100) 93fL (79-100) Mean Corpuscular Hemoglobin 31pg (25-35) 31pg (25-35) Mean Corpuscular Hemoglobin Concent 34g/dL (31-37) 34g/dL (31-37) Red Cell Distribution Width 12.1% (11.5-14.5) 11.9% (11.5-14.5) Platelet Count 350x10^3/uL (140-400) 333x10^3/uL (140-400) Neutrophils (%) (Auto) 76% (31-73) 77% (31-73) Lymphocytes (%) (Auto) 16% (24-48) 14% (24-48) Monocytes (%) (Auto) 7% (0-9) 8% (0-9) Eosinophils (%) (Auto) 1% (0-3) 1% (0-3) Basophils (%) (Auto) 0% (0-3) 0% (0-3) Neutrophils # (Auto) 12.1x10^3uL (1.8-7.7) 11.6x10^3uL (1.8-7.7) Lymphocytes # (Auto) 2.6x10^3/uL (1.0-4.8) 2.1x10^3/uL (1.0-4.8) Monocytes # (Auto) 1.1x10^3/uL (0.0-1.1) 1.2x10^3/uL (0.0-1.1) Eosinophils # (Auto) 0.1x10^3/uL (0.0-0.7) 0.2x10^3/uL (0.0-0.7) Basophils # (Auto) 0.1x10^3/uL (0.0-0.2) 0.1x10^3/uL (0.0-0.2) Sodium Level 140mmol/L (136-145) 137mmol/L (136-145) Potassium Level 3.2mmol/L (3.5-5.1) 4.2mmol/L (3.5-5.1) Chloride Level 102mmol/L (98-107) 100mmol/L (98-107) Carbon Dioxide Level 25mmol/L (21-32) 24mmol/L (21-32) Anion Gap 13 (6-14) 13 (6-14) Blood Urea Nitrogen 7mg/dL (7-20) 5mg/dL (7-20) Creatinine 0.8mg/dL (0.6-1.0) 0.6mg/dL (0.6-1.0) Estimated GFR (Cockcroft-Gault) 89.7 125.0 BUN/Creatinine Ratio 9 (6-20) Glucose Level 114mg/dL (70-99) 174mg/dL (70-99) Calcium Level 8.4mg/dL (8.5-10.1) 8.7mg/dL (8.5-10.1) Total Bilirubin 0.6mg/dL (0.2-1.0) Aspartate Amino Transf (AST/SGOT) 14U/L (15-37) Alanine Aminotransferase (ALT/SGPT) 15U/L (14-59) Alkaline Phosphatase 94U/L (46-116) Total Protein 6.6g/dL (6.4-8.2) Albumin 2.8g/dL (3.4-5.0) Albumin/Globulin Ratio 0.7 (1.0-1.7) Lactic Acid Level 0.9mmol/L (0.4-2.0) Laboratory Tests Test 02/10/17 05:10 White Blood Count 15.1x10^3/uL (4.0-11.0) Red Blood Count 4.11x10^6/uL (3.50-5.40) Hemoglobin 12.9g/dL (12.0-15.5) Hematocrit 38.0% (36.0-47.0) Mean Corpuscular Volume 93fL (79-100) Mean Corpuscular Hemoglobin 31pg (25-35) Mean Corpuscular Hemoglobin Concent 34g/dL (31-37) Red Cell Distribution Width 11.9% (11.5-14.5) Platelet Count 333x10^3/uL (140-400) Neutrophils (%) (Auto) 77% (31-73) Lymphocytes (%) (Auto) 14% (24-48) Monocytes (%) (Auto) 8% (0-9) Eosinophils (%) (Auto) 1% (0-3) Basophils (%) (Auto) 0% (0-3) Neutrophils # (Auto) 11.6x10^3uL (1.8-7.7) Lymphocytes # (Auto) 2.1x10^3/uL (1.0-4.8) Monocytes # (Auto) 1.2x10^3/uL (0.0-1.1) Eosinophils # (Auto) 0.2x10^3/uL (0.0-0.7) Basophils # (Auto) 0.1x10^3/uL (0.0-0.2) Sodium Level 137mmol/L (136-145) Potassium Level 4.2mmol/L (3.5-5.1) Chloride Level 100mmol/L (98-107) Carbon Dioxide Level 24mmol/L (21-32) Anion Gap 13 (6-14) Blood Urea Nitrogen 5mg/dL (7-20) Creatinine 0.6mg/dL (0.6-1.0) Estimated GFR (Cockcroft-Gault) 125.0 Glucose Level 174mg/dL (70-99) Calcium Level 8.7mg/dL (8.5-10.1) Problem List Problems Medical Problems: (1) Acute appendicitis Status: Acute (2) Appendicitis with perforation Status: Acute (3) Diabetes Status: Acute Assessment/Plan s/p lap appy wbc 15, fever t max 100.9m tachy pain better with GAS WELDING EQUIPMENT MECHANIC ID following will review with Dr Chowdhury Problems: JADEN CHOWDHURY MD 02/10/17 1333: SURGICAL PROGRESS NOTE Assessment/Plan pt seen and examined mom at bedside needs to be up more took a laxative earlier will offer suppository if no results Problems: JEOVANY ZHANG APRN Feb 10, 2017 10:08 JADEN CHOWDHURY MD Feb 10, 2017 13:33
--- NOTE | 2017-02-10 10:52 | PDOC ---
Infectious Disease Note Subjective Subjective Sleeping s/p DINING SERVER and ativan Friend reports she is some better ROS ROS Vital Sign Vital Signs Vital Signs Date Time Temp Pulse Resp B/P Pulse Ox O2 Delivery O2 Flow Rate FiO2 02/10/17 08:00 Room Air 1.0 02/10/17 07:00 97.3 111 20 125/76 97 97.3 Physical Exam PHYSICAL EXAM GENERAL: NAD, Appears comfortable HEENT: Normocephalic NECK: no JVD, no LN LUNGS: Clear HEART: S1S2, no gallop, no murmur ABD: Soft, Mild distension, EXT: No edema, no cyanosis POWER GENERATION ENGINEER: Nonfocal SKIN: No rash IV: ok Labs Lab Laboratory Tests Test 02/10/17 05:10 White Blood Count 15.1x10^3/uL (4.0-11.0) Red Blood Count 4.11x10^6/uL (3.50-5.40) Hemoglobin 12.9g/dL (12.0-15.5) Hematocrit 38.0% (36.0-47.0) Mean Corpuscular Volume 93fL (79-100) Mean Corpuscular Hemoglobin 31pg (25-35) Mean Corpuscular Hemoglobin Concent 34g/dL (31-37) Red Cell Distribution Width 11.9% (11.5-14.5) Platelet Count 333x10^3/uL (140-400) Neutrophils (%) (Auto) 77% (31-73) Lymphocytes (%) (Auto) 14% (24-48) Monocytes (%) (Auto) 8% (0-9) Eosinophils (%) (Auto) 1% (0-3) Basophils (%) (Auto) 0% (0-3) Neutrophils # (Auto) 11.6x10^3uL (1.8-7.7) Lymphocytes # (Auto) 2.1x10^3/uL (1.0-4.8) Monocytes # (Auto) 1.2x10^3/uL (0.0-1.1) Eosinophils # (Auto) 0.2x10^3/uL (0.0-0.7) Basophils # (Auto) 0.1x10^3/uL (0.0-0.2) Sodium Level 137mmol/L (136-145) Potassium Level 4.2mmol/L (3.5-5.1) Chloride Level 100mmol/L (98-107) Carbon Dioxide Level 24mmol/L (21-32) Anion Gap 13 (6-14) Blood Urea Nitrogen 5mg/dL (7-20) Creatinine 0.6mg/dL (0.6-1.0) Estimated GFR (Cockcroft-Gault) 125.0 Glucose Level 174mg/dL (70-99) Calcium Level 8.7mg/dL (8.5-10.1) Objective Assessment H/o MRSA Appendix perforation s/p lap appendectomy 02/07. ? fluid collection on CT Leukocytosis - improved ? Pneumonitis Fever - better Tm 100.3 Abdominal pain - controlled with DINING SERVER and ativan DM Plan Plan of Care Continue Zosyn/Zyvox (given age and h/o substance abuse it will likely be difficult to get adequate Vanc levels at safe dosing levels) and Fluconazole F/u labs/cults D/w friend KINJAL REAL MD Feb 10, 2017 10:52
[2017-02-10 11:00] VITALS: BP 127/77
[2017-02-10] MEDS: FLUCONAZOLE 400MG/200ML PREMIX 200 ML IV SCH (12:14)
--- NOTE | 2017-02-10 12:50 | PDOC ---
PROGRESS NOTES Chief Complaint Chief Complaint Appendicitis ASSESSMENT AND PLAN: 1. Appendicitis: s/p laparoscopic appendectomy on 02/[address] Girard. 2. Peritonitis: free fluid on CT, but w/o visualized rupture. WBC remain elevated 3. Pain control: on TRANSPORTATION ECONOMICS TEACHER dilaudid, wants more. hx meth abuse. 4. 4 cm R ovarian cyst, found on CT and likely asymptomatic. c yst in ovulating young woman not unusual. 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 DM: on insulin pump with good control. 6. Nutrition: poor 2/2 pain; no N/V. clear liquids only, IVF 7. Hypokalemia: resolved. monitor 8. Protein malnutrition in Obesity: moderate. diet consult History of Present Illness History of Present Illness Vitals Vitals Vital Signs Date Time Temp Pulse Resp B/P Pulse Ox O2 Delivery O2 Flow Rate FiO2 02/10/17 11:00 97.7 103 20 127/77 94 Room Air 97.7 02/10/17 08:00 1.0 Physical Exam General: Alert, Oriented X3, Cooperative, No acute distress Heart: Regular rate Lungs: Clear Abdomen: Soft, Other (distended, lap dressings dry) Extremities: No cyanosis, No edema Skin: No rashes Labs LABS Laboratory Tests Test 02/10/17 05:10 White Blood Count 15.1x10^3/uL (4.0-11.0) Red Blood Count 4.11x10^6/uL (3.50-5.40) Hemoglobin 12.9g/dL (12.0-15.5) Hematocrit 38.0% (36.0-47.0) Mean Corpuscular Volume 93fL (79-100) Mean Corpuscular Hemoglobin 31pg (25-35) Mean Corpuscular Hemoglobin Concent 34g/dL (31-37) Red Cell Distribution Width 11.9% (11.5-14.5) Platelet Count 333x10^3/uL (140-400) Neutrophils (%) (Auto) 77% (31-73) Lymphocytes (%) (Auto) 14% (24-48) Monocytes (%) (Auto) 8% (0-9) Eosinophils (%) (Auto) 1% (0-3) Basophils (%) (Auto) 0% (0-3) Neutrophils # (Auto) 11.6x10^3uL (1.8-7.7) Lymphocytes # (Auto) 2.1x10^3/uL (1.0-4.8) Monocytes # (Auto) 1.2x10^3/uL (0.0-1.1) Eosinophils # (Auto) 0.2x10^3/uL (0.0-0.7) Basophils # (Auto) 0.1x10^3/uL (0.0-0.2) Sodium Level 137mmol/L (136-145) Potassium Level 4.2mmol/L (3.5-5.1) Chloride Level 100mmol/L (98-107) Carbon Dioxide Level 24mmol/L (21-32) Anion Gap 13 (6-14) Blood Urea Nitrogen 5mg/dL (7-20) Creatinine 0.6mg/dL (0.6-1.0) Estimated GFR (Cockcroft-Gault) 125.0 Glucose Level 174mg/dL (70-99) Calcium Level 8.7mg/dL (8.5-10.1) Review of Systems Review of Systems pain generally 6-8. has TRANSPORTATION ECONOMICS TEACHER. not MARK ANTHONY Silva MD Feb 10, 2017 12:50
[2017-02-10] MEDS ORDERED: BISACODYL 10 MG SUPP.RECT PR PRN (13:45)
[2017-02-10 15:00] VITALS: BP 109/70
[2017-02-10 19:00] VITALS: BP 105/63
[2017-02-10 23:10] VITALS: BP 122/72
[2017-02-11] MEDS: PIPERACILLIN/TAZOBACTAM 3.375 GM in IV NORMAL SALINE 50ML 50 ML IV SCH ×4 (00:53→18:24)
[2017-02-11] MEDS: HYDROMORPHONE STANDARD PCA 30 ML IV PRN (02:33)
[2017-02-11 03:00] VITALS: BP 116/76
[2017-02-11] MEDS: IV DEXTROSE 5%-LACT RINGERS 1,000 ML IV SCH (03:00)
[2017-02-11 05:24] LABS: BASO % 0 % (0-3); EOS % 3 % (0-3); HEMATOCRIT 37.9 % (36.0-47.0); HEMOGLOBIN 12.7 g/dL (12.0-15.5); LYMPH # 2.2 x10^3/uL (1.0-4.8); LYMPH % 21 % (24-48); MEAN CORPUSCULAR HEMOGLOBIN 31 pg (25-35); MEAN CORPUSCULAR HGB CONC 34 g/dL (31-37); MEAN CORPUSCULAR VOLUME 92 fL (79-100); MONO % 7 % (0-9); NEUT % 68 % (31-73); PLATELET COUNT 394 x10^3/uL (140-400); RED BLOOD COUNT 4.12 x10^6/uL (3.50-5.40); RED CELL DISTRIBUTION WIDTH 11.8 % (11.5-14.5); WHITE BLOOD COUNT 10.2 x10^3/uL (4.0-11.0)
[2017-02-11 05:57] LABS: CREATININE 0.6 mg/dL (0.6-1.0); POTASSIUM 3.9 mmol/L (3.5-5.1)
[2017-02-11 07:00] VITALS: BP 116/67
[2017-02-11] MEDS: INSULIN ASPART 300 UNITS/3 ML INSULN.PEN SQ SCH ×3 (08:00→17:00)
[2017-02-11] MEDS: NICOTINE 21MG PATCH. TD SCH (09:00)
[2017-02-11] MEDS: DOCUSATE SODIUM 100 MG CAPSULE PO SCH ×2 (09:36→21:01)
[2017-02-11] MEDS: ENOXAPARIN 40 MG/0.4 ML DISP.SYRIN. SQ SCH (09:36)
[2017-02-11] MEDS: POLYETHYLENE GLYCOL 3350 17 GM PACKET. PO SCH (09:36)
--- NOTE | 2017-02-11 10:22 | PDOC ---
SURGICAL PROGRESS NOTE Subjective better asking to go home Vital Signs Vital Signs Date Time Temp Pulse Resp B/P Pulse Ox O2 Delivery O2 Flow Rate FiO2 02/11/17 07:00 98.0 96 14 116/67 95 Room Air 98.0 02/11/17 02:33 1.0 I&O Intake and Output 02/11/17 07:00 Intake Total 400 ml Balance 400 ml Intake Oral 400 ml # Voids 3 PATIENT HAS A SALDAÑA: No General: Oriented X3, Cooperative, No acute distress Abdomen: Soft Labs Laboratory Tests Test 02/10/17 05:10 02/11/17 04:40 White Blood Count 15.1x10^3/uL (4.0-11.0) 10.2x10^3/uL (4.0-11.0) Red Blood Count 4.11x10^6/uL (3.50-5.40) 4.12x10^6/uL (3.50-5.40) Hemoglobin 12.9g/dL (12.0-15.5) 12.7g/dL (12.0-15.5) Hematocrit 38.0% (36.0-47.0) 37.9% (36.0-47.0) Mean Corpuscular Volume 93fL (79-100) 92fL (79-100) Mean Corpuscular Hemoglobin 31pg (25-35) 31pg (25-35) Mean Corpuscular Hemoglobin Concent 34g/dL (31-37) 34g/dL (31-37) Red Cell Distribution Width 11.9% (11.5-14.5) 11.8% (11.5-14.5) Platelet Count 333x10^3/uL (140-400) 394x10^3/uL (140-400) Neutrophils (%) (Auto) 77% (31-73) 68% (31-73) Lymphocytes (%) (Auto) 14% (24-48) 21% (24-48) Monocytes (%) (Auto) 8% (0-9) 7% (0-9) Eosinophils (%) (Auto) 1% (0-3) 3% (0-3) Basophils (%) (Auto) 0% (0-3) 0% (0-3) Neutrophils # (Auto) 11.6x10^3uL (1.8-7.7) 6.9x10^3uL (1.8-7.7) Lymphocytes # (Auto) 2.1x10^3/uL (1.0-4.8) 2.2x10^3/uL (1.0-4.8) Monocytes # (Auto) 1.2x10^3/uL (0.0-1.1) 0.7x10^3/uL (0.0-1.1) Eosinophils # (Auto) 0.2x10^3/uL (0.0-0.7) 0.3x10^3/uL (0.0-0.7) Basophils # (Auto) 0.1x10^3/uL (0.0-0.2) 0.0x10^3/uL (0.0-0.2) Sodium Level 137mmol/L (136-145) 139mmol/L (136-145) Potassium Level 4.2mmol/L (3.5-5.1) 3.9mmol/L (3.5-5.1) Chloride Level 100mmol/L (98-107) 101mmol/L (98-107) Carbon Dioxide Level 24mmol/L (21-32) 27mmol/L (21-32) Anion Gap 13 (6-14) 11 (6-14) Blood Urea Nitrogen 5mg/dL (7-20) 5mg/dL (7-20) Creatinine 0.6mg/dL (0.6-1.0) 0.6mg/dL (0.6-1.0) Estimated GFR (Cockcroft-Gault) 125.0 125.0 Glucose Level 174mg/dL (70-99) 168mg/dL (70-99) Calcium Level 8.7mg/dL (8.5-10.1) 9.0mg/dL (8.5-10.1) Laboratory Tests Test 02/11/17 04:40 White Blood Count 10.2x10^3/uL (4.0-11.0) Red Blood Count 4.12x10^6/uL (3.50-5.40) Hemoglobin 12.7g/dL (12.0-15.5) Hematocrit 37.9% (36.0-47.0) Mean Corpuscular Volume 92fL (79-100) Mean Corpuscular Hemoglobin 31pg (25-35) Mean Corpuscular Hemoglobin Concent 34g/dL (31-37) Red Cell Distribution Width 11.8% (11.5-14.5) Platelet Count 394x10^3/uL (140-400) Neutrophils (%) (Auto) 68% (31-73) Lymphocytes (%) (Auto) 21% (24-48) Monocytes (%) (Auto) 7% (0-9) Eosinophils (%) (Auto) 3% (0-3) Basophils (%) (Auto) 0% (0-3) Neutrophils # (Auto) 6.9x10^3uL (1.8-7.7) Lymphocytes # (Auto) 2.2x10^3/uL (1.0-4.8) Monocytes # (Auto) 0.7x10^3/uL (0.0-1.1) Eosinophils # (Auto) 0.3x10^3/uL (0.0-0.7) Basophils # (Auto) 0.0x10^3/uL (0.0-0.2) Sodium Level 139mmol/L (136-145) Potassium Level 3.9mmol/L (3.5-5.1) Chloride Level 101mmol/L (98-107) Carbon Dioxide Level 27mmol/L (21-32) Anion Gap 11 (6-14) Blood Urea Nitrogen 5mg/dL (7-20) Creatinine 0.6mg/dL (0.6-1.0) Estimated GFR (Cockcroft-Gault) 125.0 Glucose Level 168mg/dL (70-99) Calcium Level 9.0mg/dL (8.5-10.1) Problem List Problems Medical Problems: (1) Acute appendicitis Status: Acute (2) Appendicitis with perforation Status: Acute (3) Diabetes Status: Acute Assessment/Plan improved increase activity follow temp continue abx Problems: JADEN CHOWDHURY MD Feb 11, 2017 10:22
[2017-02-11 11:00] VITALS: BP 103/60
[2017-02-11] MEDS: OXYCODONE IR 5 MG TABLET. PO PRN ×5 (11:04→22:43)
[2017-02-11] MEDS: FLUCONAZOLE 400MG/200ML PREMIX 200 ML IV SCH (12:30)
[2017-02-11] MEDS: KETOROLAC 15 MG/ML VIAL. IV PRN ×2 (13:21→21:02)
[2017-02-11] MEDS: POTASSIUM CL 20MEQ-0.45% NACL 1,000 ML IV SCH ×2 (13:22→21:01)
--- NOTE | 2017-02-11 14:33 | PDOC ---
PROGRESS NOTES Chief Complaint Chief Complaint Appendicitis ASSESSMENT AND PLAN: 1. Appendicitis: s/p laparoscopic appendectomy on 02/[address] Girard. much improved 2. Peritonitis: free fluid on CT, but w/o visualized rupture. WBC finally back to mormal. continue IV Abx for now. recurrent low grade temps, no fever 3. Pain control: switched to PO oxy. pt more comfortable 4. 4 cm R ovarian cyst, found on CT and likely asymptomatic. cyst in ovulating young woman not unusual. 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 DM: on insulin pump with good control. 6. Hypokalemia: resolved. monitor 7. Nutrition: no N/V. tolerating reg diet 8. Protein malnutrition in Obesity: moderate. diet consult 9. Tobacco addiction: nicotine patch 10: prophylaxis: lovenox 11. Dispo: poss D/C home in AM History of Present Illness History of Present Illness Vitals Vitals Vital Signs Date Time Temp Pulse Resp B/P Pulse Ox O2 Delivery O2 Flow Rate FiO2 02/11/17 11:04 21 Room Air 02/11/17 11:00 98.3 100 103/60 98 98.3 02/11/17 02:33 1.0 Physical Exam General: Oriented X3, Cooperative, No acute distress Heart: Regular rate Lungs: Clear Abdomen: Soft Extremities: No cyanosis, No edema Skin: No rashes Labs LABS Laboratory Tests Test 02/11/17 04:40 White Blood Count 10.2x10^3/uL (4.0-11.0) Red Blood Count 4.12x10^6/uL (3.50-5.40) Hemoglobin 12.7g/dL (12.0-15.5) Hematocrit 37.9% (36.0-47.0) Mean Corpuscular Volume 92fL (79-100) Mean Corpuscular Hemoglobin 31pg (25-35) Mean Corpuscular Hemoglobin Concent 34g/dL (31-37) Red Cell Distribution Width 11.8% (11.5-14.5) Platelet Count 394x10^3/uL (140-400) Neutrophils (%) (Auto) 68% (31-73) Lymphocytes (%) (Auto) 21% (24-48) Monocytes (%) (Auto) 7% (0-9) Eosinophils (%) (Auto) 3% (0-3) Basophils (%) (Auto) 0% (0-3) Neutrophils # (Auto) 6.9x10^3uL (1.8-7.7) Lymphocytes # (Auto) 2.2x10^3/uL (1.0-4.8) Monocytes # (Auto) 0.7x10^3/uL (0.0-1.1) Eosinophils # (Auto) 0.3x10^3/uL (0.0-0.7) Basophils # (Auto) 0.0x10^3/uL (0.0-0.2) Sodium Level 139mmol/L (136-145) Potassium Level 3.9mmol/L (3.5-5.1) Chloride Level 101mmol/L (98-107) Carbon Dioxide Level 27mmol/L (21-32) Anion Gap 11 (6-14) Blood Urea Nitrogen 5mg/dL (7-20) Creatinine 0.6mg/dL (0.6-1.0) Estimated GFR (Cockcroft-Gault) 125.0 Glucose Level 168mg/dL (70-99) Calcium Level 9.0mg/dL (8.5-10.1) Review of Systems Review of Systems feels much better. pain better controlled with oxy. good PO intake MARK ANTHONY SHANKS MD Feb 11, 2017 14:33
[2017-02-11 15:00] VITALS: BP 111/59
--- NOTE | 2017-02-11 15:04 | PDOC ---
Infectious Disease Note Subjective Subjective Comfortable Hoping to go home soon + flatus. No BM Tolerating regular diet well Fever Tmax 100.1 ROS ROS GEN: Denies chills, sweats CV: Denies chest pain RESP: Denies shortness of air, cough GI: Denies n/v Vital Sign Vital Signs Vital Signs Date Time Temp Pulse Resp B/P Pulse Ox O2 Delivery O2 Flow Rate FiO2 02/11/17 14:40 17 Room Air 02/11/17 11:00 98.3 100 103/60 98 98.3 02/11/17 02:33 1.0 Physical Exam PHYSICAL EXAM GENERAL: Lying in bed NAD LUNGS: Clear HEART: S1S2, no gallop, no murmur ABD: Distended, BS present, soft, NT EXT: No edema, no cyanosis BANK GUARD: Alert, oriented x 3, no focal neurologic deficit SKIN: No rash IV: ok Labs Lab Laboratory Tests Test 02/11/17 04:40 White Blood Count 10.2x10^3/uL (4.0-11.0) Red Blood Count 4.12x10^6/uL (3.50-5.40) Hemoglobin 12.7g/dL (12.0-15.5) Hematocrit 37.9% (36.0-47.0) Mean Corpuscular Volume 92fL (79-100) Mean Corpuscular Hemoglobin 31pg (25-35) Mean Corpuscular Hemoglobin Concent 34g/dL (31-37) Red Cell Distribution Width 11.8% (11.5-14.5) Platelet Count 394x10^3/uL (140-400) Neutrophils (%) (Auto) 68% (31-73) Lymphocytes (%) (Auto) 21% (24-48) Monocytes (%) (Auto) 7% (0-9) Eosinophils (%) (Auto) 3% (0-3) Basophils (%) (Auto) 0% (0-3) Neutrophils # (Auto) 6.9x10^3uL (1.8-7.7) Lymphocytes # (Auto) 2.2x10^3/uL (1.0-4.8) Monocytes # (Auto) 0.7x10^3/uL (0.0-1.1) Eosinophils # (Auto) 0.3x10^3/uL (0.0-0.7) Basophils # (Auto) 0.0x10^3/uL (0.0-0.2) Sodium Level 139mmol/L (136-145) Potassium Level 3.9mmol/L (3.5-5.1) Chloride Level 101mmol/L (98-107) Carbon Dioxide Level 27mmol/L (21-32) Anion Gap 11 (6-14) Blood Urea Nitrogen 5mg/dL (7-20) Creatinine 0.6mg/dL (0.6-1.0) Estimated GFR (Cockcroft-Gault) 125.0 Glucose Level 168mg/dL (70-99) Calcium Level 9.0mg/dL (8.5-10.1) CT abd/pelvis, 02/09 IMPRESSION: 1. Moderate pericecal inflammation with a small amount of free fluid status post appendectomy. 2. A deep pelvic fluid collection has increased slightly in size since 02/07/2017. Infection or early abscess cannot be excluded. 3. Persistent right ovarian cyst. 4. Moderate atelectasis and/or pneumonitis has developed posteriorly in both lung bases with a tiny amount of bilateral pleural fluid. Objective Assessment H/o MRSA Appendix perforation s/p lap appendectomy 02/07. ? fluid collection on CT Leukocytosis - improved ? Pneumonitis Fever - better Abdominal pain, better DM Plan Plan of Care Continue Zosyn, Zyvox (given age and h/o substance abuse it will likely be difficult to get adequate Vanc levels at safe dosing levels) and Fluconazole Monitor WBC, Cr and temp Encouraged ambulation Attending Co-Sign The patient was seen and interviewed as well as examined at the bedside. The chart was reviewed. The case was discussed. Agree with the plan of care. BANDAR CLARK APRN Feb 11, 2017 15:04 MADDI MAYFIELD MD Feb 11, 2017 15:10
[2017-02-11 19:00] VITALS: BP 106/64
[2017-02-11 23:00] VITALS: BP 94/45
[2017-02-12] MEDS: PIPERACILLIN/TAZOBACTAM 3.375 GM in IV NORMAL SALINE 50ML 50 ML IV SCH ×3 (00:49→11:35)
[2017-02-12] MEDS: OXYCODONE IR 5 MG TABLET. PO PRN ×3 (04:05→12:30)
[2017-02-12] MEDS: POTASSIUM CL 20MEQ-0.45% NACL 1,000 ML IV SCH ×2 (04:10→14:00)
[2017-02-12 04:11] VITALS: BP 109/60
[2017-02-12 06:13] LABS: BASO % 1 % (0-3); EOS % 5 % (0-3); HEMATOCRIT 36.7 % (36.0-47.0); HEMOGLOBIN 12.3 g/dL (12.0-15.5); LYMPH # 2.3 x10^3/uL (1.0-4.8); LYMPH % 28 % (24-48); MEAN CORPUSCULAR HEMOGLOBIN 31 pg (25-35); MEAN CORPUSCULAR HGB CONC 34 g/dL (31-37); MEAN CORPUSCULAR VOLUME 93 fL (79-100); MONO % 8 % (0-9); NEUT % 59 % (31-73); PLATELET COUNT 414 x10^3/uL (140-400); RED BLOOD COUNT 3.94 x10^6/uL (3.50-5.40); WHITE BLOOD COUNT 8.1 x10^3/uL (4.0-11.0)
[2017-02-12 06:32] LABS: CALCIUM 8.9 mg/dL (8.5-10.1); CREATININE 0.6 mg/dL (0.6-1.0); POTASSIUM 3.9 mmol/L (3.5-5.1)
[2017-02-12 07:00] VITALS: BP 110/59
[2017-02-12] MEDS: INSULIN ASPART 300 UNITS/3 ML INSULN.PEN SQ SCH ×2 (08:00→11:51)
[2017-02-12] MEDS: NICOTINE 21MG PATCH. TD SCH (08:25)
[2017-02-12] MEDS: POLYETHYLENE GLYCOL 3350 17 GM PACKET. PO SCH (08:28)
[2017-02-12] MEDS: ENOXAPARIN 40 MG/0.4 ML DISP.SYRIN. SQ SCH (08:28)
[2017-02-12] MEDS: DOCUSATE SODIUM 100 MG CAPSULE PO SCH (08:28)
--- NOTE | 2017-02-12 10:28 | PDOC ---
Infectious Disease Note Subjective Subjective Comfortable Hoping to go home soon + BM Tolerating regular diet well No fever last 24 hours ROS ROS GEN: Denies chills, sweats CV: Denies chest pain RESP: Denies shortness of air, cough GI: Denies n/v/d Vital Sign Vital Signs Vital Signs Date Time Temp Pulse Resp B/P Pulse Ox O2 Delivery O2 Flow Rate FiO2 02/12/17 09:33 Room Air 02/12/17 07:00 98.2 71 16 110/59 94 98.2 Physical Exam PHYSICAL EXAM GENERAL: Lying in bed NAD HENT: OC/OP clear LUNGS: Clear HEART: S1S2, no gallop, no murmur ABD: Distended, BS present, soft, NT. incision clean, sutures intact EXT: No edema, no cyanosis DOOR MAKER: Alert, oriented x 3, no focal neurologic deficit SKIN: No rash IV: ok Labs Lab Laboratory Tests Test 02/12/17 04:02 02/12/17 04:40 White Blood Count 8.1x10^3/uL (4.0-11.0) Red Blood Count 3.94x10^6/uL (3.50-5.40) Hemoglobin 12.3g/dL (12.0-15.5) Hematocrit 36.7% (36.0-47.0) Mean Corpuscular Volume 93fL (79-100) Mean Corpuscular Hemoglobin 31pg (25-35) Mean Corpuscular Hemoglobin Concent 34g/dL (31-37) Red Cell Distribution Width 12.0% (11.5-14.5) Platelet Count 414x10^3/uL (140-400) Neutrophils (%) (Auto) 59% (31-73) Lymphocytes (%) (Auto) 28% (24-48) Monocytes (%) (Auto) 8% (0-9) Eosinophils (%) (Auto) 5% (0-3) Basophils (%) (Auto) 1% (0-3) Neutrophils # (Auto) 4.8x10^3uL (1.8-7.7) Lymphocytes # (Auto) 2.3x10^3/uL (1.0-4.8) Monocytes # (Auto) 0.6x10^3/uL (0.0-1.1) Eosinophils # (Auto) 0.4x10^3/uL (0.0-0.7) Basophils # (Auto) 0.0x10^3/uL (0.0-0.2) Sodium Level 140mmol/L (136-145) Potassium Level 3.9mmol/L (3.5-5.1) Chloride Level 104mmol/L (98-107) Carbon Dioxide Level 26mmol/L (21-32) Anion Gap 10 (6-14) Blood Urea Nitrogen 7mg/dL (7-20) Creatinine 0.6mg/dL (0.6-1.0) Estimated GFR (Cockcroft-Gault) 125.0 Glucose Level 148mg/dL (70-99) Calcium Level 8.9mg/dL (8.5-10.1) Micro BLOOD CULTURE Preliminary NO GROWTH AFTER 3 DAYS Objective Assessment H/o MRSA Appendix perforation s/p lap appendectomy 02/07. ? fluid collection on CT Leukocytosis - improved ? Pneumonitis Fever - better Abdominal pain, better DM Plan Plan of Care Continue Zosyn, Zyvox and Fluconazole Monitor WBC, Cr and temp Encouraged ambulation Attending Co-Sign The patient was seen and interviewed as well as examined at the bedside. The chart was reviewed. The case was discussed. Agree with the plan of care. d/c ok on po augmentin d/w BANDAR Ballesteros APRN Feb 12, 2017 10:28 MADDI MAYFIELD MD Feb 12, 2017 12:05
[2017-02-12 11:00] VITALS: BP 110/71
--- NOTE | 2017-02-12 11:36 | PDOC ---
SURGICAL PROGRESS NOTE Subjective no complaints bowels working taking regular diet Vital Signs Vital Signs Date Time Temp Pulse Resp B/P Pulse Ox O2 Delivery O2 Flow Rate FiO2 02/12/17 11:00 98.2 77 18 110/71 96 Room Air 98.2 I&O Intake and Output 02/12/17 07:00 Intake Total 1360 ml Balance 1360 ml Other 1360 ml # Voids 5 # Bowel Movements 1 PATIENT HAS A SALDAÑA: No General: Alert, Oriented X3, Cooperative, No acute distress Abdomen: Soft Labs Laboratory Tests Test 02/11/17 04:40 02/12/17 04:02 02/12/17 04:40 White Blood Count 10.2x10^3/uL (4.0-11.0) 8.1x10^3/uL (4.0-11.0) Red Blood Count 4.12x10^6/uL (3.50-5.40) 3.94x10^6/uL (3.50-5.40) Hemoglobin 12.7g/dL (12.0-15.5) 12.3g/dL (12.0-15.5) Hematocrit 37.9% (36.0-47.0) 36.7% (36.0-47.0) Mean Corpuscular Volume 92fL (79-100) 93fL (79-100) Mean Corpuscular Hemoglobin 31pg (25-35) 31pg (25-35) Mean Corpuscular Hemoglobin Concent 34g/dL (31-37) 34g/dL (31-37) Red Cell Distribution Width 11.8% (11.5-14.5) 12.0% (11.5-14.5) Platelet Count 394x10^3/uL (140-400) 414x10^3/uL (140-400) Neutrophils (%) (Auto) 68% (31-73) 59% (31-73) Lymphocytes (%) (Auto) 21% (24-48) 28% (24-48) Monocytes (%) (Auto) 7% (0-9) 8% (0-9) Eosinophils (%) (Auto) 3% (0-3) 5% (0-3) Basophils (%) (Auto) 0% (0-3) 1% (0-3) Neutrophils # (Auto) 6.9x10^3uL (1.8-7.7) 4.8x10^3uL (1.8-7.7) Lymphocytes # (Auto) 2.2x10^3/uL (1.0-4.8) 2.3x10^3/uL (1.0-4.8) Monocytes # (Auto) 0.7x10^3/uL (0.0-1.1) 0.6x10^3/uL (0.0-1.1) Eosinophils # (Auto) 0.3x10^3/uL (0.0-0.7) 0.4x10^3/uL (0.0-0.7) Basophils # (Auto) 0.0x10^3/uL (0.0-0.2) 0.0x10^3/uL (0.0-0.2) Sodium Level 139mmol/L (136-145) 140mmol/L (136-145) Potassium Level 3.9mmol/L (3.5-5.1) 3.9mmol/L (3.5-5.1) Chloride Level 101mmol/L (98-107) 104mmol/L (98-107) Carbon Dioxide Level 27mmol/L (21-32) 26mmol/L (21-32) Anion Gap 11 (6-14) 10 (6-14) Blood Urea Nitrogen 5mg/dL (7-20) 7mg/dL (7-20) Creatinine 0.6mg/dL (0.6-1.0) 0.6mg/dL (0.6-1.0) Estimated GFR (Cockcroft-Gault) 125.0 125.0 Glucose Level 168mg/dL (70-99) 148mg/dL (70-99) Calcium Level 9.0mg/dL (8.5-10.1) 8.9mg/dL (8.5-10.1) Laboratory Tests Test 02/12/17 04:02 02/12/17 04:40 White Blood Count 8.1x10^3/uL (4.0-11.0) Red Blood Count 3.94x10^6/uL (3.50-5.40) Hemoglobin 12.3g/dL (12.0-15.5) Hematocrit 36.7% (36.0-47.0) Mean Corpuscular Volume 93fL (79-100) Mean Corpuscular Hemoglobin 31pg (25-35) Mean Corpuscular Hemoglobin Concent 34g/dL (31-37) Red Cell Distribution Width 12.0% (11.5-14.5) Platelet Count 414x10^3/uL (140-400) Neutrophils (%) (Auto) 59% (31-73) Lymphocytes (%) (Auto) 28% (24-48) Monocytes (%) (Auto) 8% (0-9) Eosinophils (%) (Auto) 5% (0-3) Basophils (%) (Auto) 1% (0-3) Neutrophils # (Auto) 4.8x10^3uL (1.8-7.7) Lymphocytes # (Auto) 2.3x10^3/uL (1.0-4.8) Monocytes # (Auto) 0.6x10^3/uL (0.0-1.1) Eosinophils # (Auto) 0.4x10^3/uL (0.0-0.7) Basophils # (Auto) 0.0x10^3/uL (0.0-0.2) Sodium Level 140mmol/L (136-145) Potassium Level 3.9mmol/L (3.5-5.1) Chloride Level 104mmol/L (98-107) Carbon Dioxide Level 26mmol/L (21-32) Anion Gap 10 (6-14) Blood Urea Nitrogen 7mg/dL (7-20) Creatinine 0.6mg/dL (0.6-1.0) Estimated GFR (Cockcroft-Gault) 125.0 Glucose Level 148mg/dL (70-99) Calcium Level 8.9mg/dL (8.5-10.1) Problem List Problems Medical Problems: (1) Acute appendicitis Status: Acute (2) Appendicitis with perforation Status: Acute (3) Diabetes Status: Acute Assessment/Plan home today on Augmentin f/u 02/17 d/w Dr Simon (ID) Problems: JADEN CHOWDHURY MD Feb 12, 2017 11:36
[2017-02-12 15:00] VITALS: BP 108/63
[2017-02-12] MEDS ORDERED: AMOX1TAB61 PO (15:00)
[2017-02-12] MEDS ORDERED: OXYC5CAP3 PO (15:00)
--- NOTE | 2017-02-12 15:01 | DISCH ---
DISCHARGE INSTRUCTIONS Condition on Discharge Condition on Discharge: Stable Activity After Discharge Activity Instructions for Disc: Other, see below Lifting Instructions after Dis: No heavy lifting, No pulling or pushing Diet after Discharge Diet after Discharge: Regular Contacting the after DC Call your doctor for: Concerns you may have Follow-Up Follow up with: Dr Girard on 02/17, call for appointment MARK ANTHONY SHANKS MD Feb 12, 2017 15:01
[2017-02-12] MEDS ORDERED: AMOXICILLIN/K CLAV 875/125MG TABLET. PO SCH (21:00)
--- NOTE | 2017-02-13 03:27 | DS ---
DATE OF DISCHARGE: 02/12/2017 CHIEF COMPLAINT: Appendicitis. HOSPITAL COURSE: The patient is a 21-year-old with diabetes, with insulin pump, who presented to the Emergency Room with 36 hours of right lower quadrant pain. On CAT scan, she was found with appendicitis and free fluid suspicious for ruptured appendix. Dr. Girard took her to urgent surgery with resection of the appendix. No gross perforation was noted. The patient, however, had difficulty recovering with ongoing abdominal pain as well as elevated WBCs suspicious for peritonitis. IV antibiotics were continued and the patient defervesced with improvement in symptoms as well as her labs. After a couple of days of further observation, the patient was deemed stable for discharge on p.o. antibiotics. PHYSICAL EXAM: VS: stable GEN: alert and oriented, no acute distress CV: regular rate and rhythm PULM: clear to auscultation bilaterally GI: normal bowel sounds EXTR: no edema DISCHARGE DIAGNOSES: Appendicitis with perf, status post appendectomy on 02/07/2017. DISCHARGE DISPOSITION: To home. DISCHARGE CONDITION: Improved. DISCHARGE MEDICATIONS: Please refer to MAR. DISCHARGE INSTRUCTIONS: The patient will follow up with Dr. Girard on 02/17/2017. MARK ANTHONY SHANKS MD DR: GUILLERMO/nts JOB#: [id number] / [id number] LALA
== END 2017-02-12 15:25 | disposition home or self-care (01) | DRG 853 ==
LOC: ER 13:54 → ED HOLD 16:45 → 4 NORTH 23:38
PROVIDERS: ADMIT Internal Medicine Hematology & Oncology; ATTEND Internal Medicine Hematology & Oncology
PROC: 0DTJ4ZZ Resection of Appendix, Percutaneous Endoscopic Approach (ICD-10-PCS; principal; 2017-02-07 20:00)
DX: A41.9 Sepsis, unspecified organism (principal); J18.9 Pneumonia, unspecified organism; K35.2 Acute appendicitis with generalized peritonitis; E44.0 Moderate protein-calorie malnutrition; E10.9 Type 1 diabetes mellitus without complications; F17.200 Nicotine dependence, unspecified, uncomplicated; F41.9 Anxiety disorder, unspecified; Z96.41 Presence of insulin pump (external) (internal); N83.201 Unspecified ovarian cyst, right side; E66.9 Obesity, unspecified; F14.90 Cocaine use, unspecified, uncomplicated; Z86.14 Personal history of Methicillin resistant Staphylococcus aureus infection; Z79.4 Long term (current) use of insulin; Z68.32 Body mass index [BMI] 32.0-32.9, adult; T40.605A Adverse effect of unspecified narcotics, initial encounter; K59.03 Drug induced constipation; E87.6 Hypokalemia
CPT/HCPCS: 36415; 74177; 80048; 80053; 81001; 81025; 82947; 83605; 83690; 85007; 85027; 87040; 88304; 96361; 96365; 96366; 96368; 96375; 96376; C1782; J0330; J0696; J1100; J1170; J1450; J1650; J1815; J1885; J2020; J2060; J2270; J2370; J2405; J2543; J2704; J2710; J3010; J3490; J7030; J7042; J7120; Q9967; 99285-25